=== PATIENT | female | born 1940 | race Caucasian/White ===

== ENCOUNTER 2017-12-01 10:20 | Observation (INO) | payer MEDICARE, OTHER ==
[~2017-12-01] VITALS: Ht 162.6 cm; Wt 56.3 kg
[~2017-12-01 10:20] MED LIST changes: -DICY-42 PO; -ONDA4TAB PO
[2017-12-01] MEDS ORDERED: NS(*) 0.9% 1000 ML BAG 1,000 ML IV ONE (10:45)
[2017-12-01] MEDS ORDERED: ONDANSETRON 4 MG/2 ML VIAL IVP ONE (11:15)
[2017-12-01 11:18] LABS: PLATELET COUNT, AUTOMATED 337 K/uL (150-450)
[2017-12-01] MEDS ORDERED: fentaNYL CITR 100 MCG/2 ML AMP IVP ONE (12:20)
--- NOTE | 2017-12-01 13:36 | ER Report ---
History and Physical Time Seen By MD: 10:30 Hx. of Stated Complaint: Patient reporting diarrhea since this morning. HPI/ROS CHIEF COMPLAINT: Diarrhea HISTORY OF PRESENT ILLNESS: 2 episodes, onset this morning denies fevers chills denies abdominal cramps endorses weakness and malaise. Does not feel dehydrated. She arrived by EMS. Lives alone. Denies other medical problems REVIEW OF SYSTEMS: Constitutional: No fever, no chills. Eyes: No discharge. ENT: No sore throat. Cardiovascular: No chest pain, no palpitations. Respiratory: No cough, no shortness of breath. Gastrointestinal: No abdominal pain, no vomiting. Genitourinary: No hematuria. Musculoskeletal: No back pain. Skin: No rashes. Neurological: No headache. Allergies: Coded Allergies: No Known Drug Allergies (Verified , 10/16/17) Home Meds Reported Medications Lisinopril (LISINOPRIL) 40 Mg Tablet, 40 MG PO QDAY, TAB 10/16/17 Discontinued Reported Medications Temazepam (Temazepam) 15 Mg Capsule, 15 MG PO HS Y 01/17/13 Acetaminophen (TYLENOL 325 MG (OR EQUIV)) 325 Mg Tab, 650 MG PO Q4H Y 01/17/13 Warfarin Sod (Coumadin (Or Equiv)) 7.5 Mg Tab, 5 MG PO QDAY It is very important that you take your coumadin exactly as prescribed, have blood work to monitor your PT/INR values, and follow up with your health care provider as prescribed. Diet and medication can affect the PT/INR level. Keep your diet pretty much the same day to day. Many foods contain Vitamin K which helps blood to clot and can affect the way your coumadin works. You don't need to avoid foods that have Vitamin K, but you do need to eat about the same amount of them every day. Be sure to tell your provider before changing your diet for any reason (weight loss, illness, etc.) Do not start or discontinue any medications, prescribed or over the counter, except on the advise of your provider or pharmacist. Coumadin (Warfarin) increases the risk of bleeding. 01/17/13 Pantoprazole Sod (PROTONIX (OR EQUIV)) 40 Mg Tabec, 40 MG PO BID 01/17/13 Mirtazapine (REMERON (OR EQUIV)) 15 Mg Tab, 7.5 MG PO HS 01/17/13 Gabapentin (NEURONTIN (OR EQUIV)) 100 Mg Cap, 100 MG PO TID For leg pain. Stop if too sedating. 01/17/13 Docusate Sod/Senna (Senokot S) 1 Ea Tab, 1 EA PO BID 01/17/13 Hx Smoking: No Hx Substance Use Disorder: No Hx Alcohol Use: No Constitutional Vital Sign - Last 24 Hours 12/01/17 12/01/17 12/01/17 12/01/17 10:25 10:27 10:30 10:35 Temp 97.8 Pulse 77 75 77 Resp 18 B/P (MAP) 127/73 127/73 (91) 117/76 (90) Pulse Ox 94 94 94 O2 Delivery Room Air 12/01/17 12/01/17 12/01/17 12/01/17 10:40 10:45 10:55 11:00 Pulse 76 81 76 84 B/P (MAP) 76/51 (59) Pulse Ox 95 93 93 95 12/01/17 12/01/17 12/01/17 12/01/17 11:05 11:10 11:15 11:20 Pulse 74 94 76 Pulse Ox 95 90 89 90 Intake and Output 12/01/17 12/01/17 12/02/17 15:00 23:00 07:00 Output Total 50 ml Balance -50 ml Physical Exam General Appearance: The patient is alert, has no immediate need for airway protection and no signs of toxicity. Nontoxic appearance Eyes: Pupils equal and round no pallor or injection. ENT, Mouth: Mucous membranes are moist. Respiratory: There are no retractions, lungs are clear to auscultation. Cardiovascular: Regular rate and rhythm. No murmurs gallops or rubs Gastrointestinal: Abdomen is soft and non tender, no masses, bowel sounds normal. Neurological: Normal Skin: Warm and dry, no rashes. Musculoskeletal: Neck is supple non tender. Extremities are nontender, nonswollen and have full range of motion. [ ] DIFFERENTIAL DIAGNOSIS: After history and physical exam differential diagnosis was considered for gastritis, enteritis, gastroenteritis, colitis, pancreatitis , less likely AAA, aortic dissection, mesenteric ischemia this is an incomplete list of diagnoses considered Medical Decision Making Data Points Result Diagram: 12/01/17 1104 12/01/17 1104 Laboratory Hematology Test 12/01/17 11:04 12/01/17 11:49 12/01/17 12:42 Red Blood Count 5.36 M/uL (4.17-5.56) Mean Corpuscular Volume 89.9 fL (80.0-96.0) Mean Corpuscular Hemoglobin 30.2 pg (26.0-33.0) Mean Corpuscular Hemoglobin Concent 33.6 g/dL (32.0-36.0) Red Cell Distribution Width 13.5 % (11.5-14.5) Mean Platelet Volume 8.3 fL (7.2-11.1) Neutrophils (%) (Auto) 93.1 % (39.4-72.5) Lymphocytes (%) (Auto) 2.6 % (17.6-49.6) Monocytes (%) (Auto) 3.4 % (4.1-12.4) Eosinophils (%) (Auto) 0.5 % (0.4-6.7) Basophils (%) (Auto) 0.4 % (0.3-1.4) Nucleated RBC Relative Count (auto) 0.0 /100WBC Neutrophils # (Auto) 14.7 K/uL (2.0-7.4) Lymphocytes # (Auto) 0.4 K/uL (1.3-3.6) Monocytes # (Auto) 0.5 K/uL (0.3-1.0) Eosinophils # (Auto) 0.1 K/uL (0.0-0.5) Basophils # (Auto) 0.1 K/uL (0.0-0.1) Nucleated RBC Absolute Count (auto) 0.00 K/uL Sodium Level 138 mmol/L (137-145) Potassium Level 4.3 mmol/L (3.5-5.0) Chloride Level 104 mmol/L (98-107) Carbon Dioxide Level 24 mmol/L (22-31) Blood Urea Nitrogen 13 mg/dl (7-18) Creatinine 0.80 mg/dl (0.52-1.04) Glomerular Filtration Rate Calc > 60.0 Random Glucose 103 mg/dl (75-110) Calcium Level 9.4 mg/dl (8.4-10.2) Stool Occult Blood (IFOB) Negative (NEGATIVE) Stool Leukocytes, Qualitative Positive Clostridium Difficile Toxin A & B Negative Clostridium difficile Antigen Negative Urine Color Yellow Urine Clarity Clear Urine pH 5.0 pH (4.8-9.5) Urine Specific [place] 1.019 Urine Protein Negative mg/dL (NEGATIVE) Urine Glucose (UA) Negative mg/dL (NEGATIVE) Urine Ketones Trace mg/dL (NEGATIVE) Urine Blood Negative (NEGATIVE) Urine Nitrite Negative (NEGATIVE) Urine Bilirubin Negative (NEGATIVE) Urine Urobilinogen 2.0 mg/dL (0.2-1.9) Urine Leukocyte Esterase Negative (NEGATIVE) Urine RBC None /HPF (0-2/HPF) Urine WBC <1 /HPF (0-5/HPF) Urine Squamous Epithelial Cells None /LPF (NONE-FEW) Urine Bacteria Negative /HPF (NONE-FEW) Urine Mucus None /HPF (NONE-FEW) Chemistry Test 12/01/17 11:04 12/01/17 11:49 12/01/17 12:42 White Blood Count 15.8 k/uL (4.5-11.0) Red Blood Count 5.36 M/uL (4.17-5.56) Hemoglobin 16.2 g/dL (12.0-16.0) Hematocrit 48.2 % (34.0-47.0) Mean Corpuscular Volume 89.9 fL (80.0-96.0) Mean Corpuscular Hemoglobin 30.2 pg (26.0-33.0) Mean Corpuscular Hemoglobin Concent 33.6 g/dL (32.0-36.0) Red Cell Distribution Width 13.5 % (11.5-14.5) Platelet Count 337 K/uL (150-450) Mean Platelet Volume 8.3 fL (7.2-11.1) Neutrophils (%) (Auto) 93.1 % (39.4-72.5) Lymphocytes (%) (Auto) 2.6 % (17.6-49.6) Monocytes (%) (Auto) 3.4 % (4.1-12.4) Eosinophils (%) (Auto) 0.5 % (0.4-6.7) Basophils (%) (Auto) 0.4 % (0.3-1.4) Nucleated RBC Relative Count (auto) 0.0 /100WBC Neutrophils # (Auto) 14.7 K/uL (2.0-7.4) Lymphocytes # (Auto) 0.4 K/uL (1.3-3.6) Monocytes # (Auto) 0.5 K/uL (0.3-1.0) Eosinophils # (Auto) 0.1 K/uL (0.0-0.5) Basophils # (Auto) 0.1 K/uL (0.0-0.1) Nucleated RBC Absolute Count (auto) 0.00 K/uL Glomerular Filtration Rate Calc > 60.0 Calcium Level 9.4 mg/dl (8.4-10.2) Stool Occult Blood (IFOB) Negative (NEGATIVE) Stool Leukocytes, Qualitative Positive Clostridium Difficile Toxin A & B Negative Clostridium difficile Antigen Negative Urine Color Yellow Urine Clarity Clear Urine pH 5.0 pH (4.8-9.5) Urine Specific [place] 1.019 Urine Protein Negative mg/dL (NEGATIVE) Urine Glucose (UA) Negative mg/dL (NEGATIVE) Urine Ketones Trace mg/dL (NEGATIVE) Urine Blood Negative (NEGATIVE) Urine Nitrite Negative (NEGATIVE) Urine Bilirubin Negative (NEGATIVE) Urine Urobilinogen 2.0 mg/dL (0.2-1.9) Urine Leukocyte Esterase Negative (NEGATIVE) Urine RBC None /HPF (0-2/HPF) Urine WBC <1 /HPF (0-5/HPF) Urine Squamous Epithelial Cells None /LPF (NONE-FEW) Urine Bacteria Negative /HPF (NONE-FEW) Urine Mucus None /HPF (NONE-FEW) Urinalysis Test 12/01/17 12:42 Urine Color Yellow Urine Clarity Clear Urine pH 5.0 pH (4.8-9.5) Urine Specific [place] 1.019 Urine Protein Negative mg/dL (NEGATIVE) Urine Glucose (UA) Negative mg/dL (NEGATIVE) Urine Ketones Trace mg/dL (NEGATIVE) Urine Blood Negative (NEGATIVE) Urine Nitrite Negative (NEGATIVE) Urine Bilirubin Negative (NEGATIVE) Urine Urobilinogen 2.0 mg/dL (0.2-1.9) Urine Leukocyte Esterase Negative (NEGATIVE) Urine RBC None /HPF (0-2/HPF) Urine WBC <1 /HPF (0-5/HPF) Urine Squamous Epithelial Cells None /LPF (NONE-FEW) Urine Bacteria Negative /HPF (NONE-FEW) Urine Mucus None /HPF (NONE-FEW) Microbiology Microbiology Date/Time Source Procedure Growth Status 12/01/17 11:49 Stool Gram Stain - Final Resulted 12/01/17 11:49 Stool Stool Culture Pending Resulted ED Course/Re-evaluation ED Course 12/01/2017 1:45:02 pm the case was discussed with Dr. Ellis. Patient does not need to be amended this time. Recommends oral hydration given water use at home. No antibiotics at this time. This was discussed with the patient agrees to , no one I get help as needed. She has no pain. Vitals are stable at this time. Her daughter can be called to come and look after her. Decision to Disposition Date: Dec 01, 2017 Decision to Disposition Time: 13:46 Depart Departure Latest Vital Signs Vital Signs Date Time Temp Pulse Resp B/P (MAP) Pulse Ox O2 Delivery O2 Flow Rate FiO2 12/01/17 11:20 90 12/01/17 11:15 76 12/01/17 11:00 76/51 (59) 12/01/17 10:25 97.8 18 Room Air Impression: Primary Impression: Diarrhea Condition: Improved Disposition: HOME OR SELF-CARE Referrals: PADMINI BROWN PA-C (PCP) New Scripts Ondansetron (ZOFRAN ODT) 4 Mg Tab.rapdis 4 MG PO Q6H Y for NAUSEA/VOMITING, #20 TAB.FIGUEROA 0 Refills Prov: GARY MALHOTRA MD 12/01/17 Dicyclomine Hcl (BENTYL) 10 Mg Capsule 20 MG PO QID for Nausea for 10 Days, #20 CAPSULE Prov: GARY MALHOTRA MD 12/01/17 Patient Instructions: Acute Diarrhea (ED) GARY MALHOTRA MD Dec 01, 2017 13:36
[2017-12-01] MEDS ORDERED: ONDA4TAB PO (13:57)
[2017-12-01] MEDS ORDERED: DICY-42 PO (13:57)
--- NOTE | 2017-12-01 15:33 | RADIOLOGY IMAGING REPORT ---
FACILITY: [facility] PATIENT NAME: Tere Johnson : 1940 MR: [id number] V: [id number] EXAM DATE: ORDERING PHYSICIAN: GARY MALHOTRA TECHNOLOGIST: Location: [facility] Patient: Tere Johnson : 1940 Visit/Account:[id number] Date of Sevice: 12/01/2017 Exam type: CHEST SINGLE AP History: Hypoxia Comparison: January 10, 2013. Findings: Mild interstitial prominence of the lungs appear some are to the prior study and appears to be chroni c. No focal infiltrates are identified. There is mild blunting left costophrenic angle although joel ears less prominent when compared the prior examination. The cardiac silhouette is enlarged but unch anged. There is soft tissue fullness in the paratracheal region which appears slightly more prominen t when compared the prior study. The patient's chin however is positioned inferiorly over the upper thorax which may part account for this finding.. Also of note on a prior CT from January 11, 2013 a re ectatic vessels in the superior mediastinum. Incompletely imaged are postsurgical changes the lum bar spine IMPRESSION: 1. Interstitial prominence throughout the lungs appears similar to the prior study and appears to be chronic. No acute appearing infiltrates are seen. Cardiomegaly unchanged Soft tissue fullness in the paratracheal region appears subtly more prominent when compared the prior study however the patient's chin is positioned inferiorly over the upper thorax which may account fo r this finding. Ectatic vessels in the superior mediastinum are also noted on a prior CT Report Dictated By: Jessica Ribeiro MD at 12/01/2017 3:24 PM Report E-Signed By: Jessica Ribeiro MD at 12/01/2017 3:28 PM [id number]:[email or web address]
[2017-12-01 18:06] VITALS: BP 160/93
[2017-12-01] MEDS ORDERED: NS(*) 0.9% 1000 ML BAG 1,000 ML IV PRN (18:33)
[2017-12-01] MEDS: ACETAMINOPHEN 325 MG TAB PO PRN (19:10)
--- NOTE | 2017-12-01 19:12 | History & Physical ---
History of Present Illness Chief Complaint Diarrhea History of Present Illness 77yo female with PMHx significant for previous pulmonary embolism, HTN, previous lumbar spine surgery, pneumonia. She was evaluated in the ER for acute onset of nausea, vomiting, and diarrhea, which began early this AM. She denies any obvious fevers or chills. She denies any current abdominal pain. She was noted to be somewhat confused, but it is unclear as to her baseline. She currently lives alone and receives some help with Meals on Wheels. She does answer all questions, but is confused as to current day/date. She does know she is 77years old and was born on [birth year], but does not recall her year. Looking through previous evaluations in the ER, it appears she has had some chronic problems with cognitive abilities. During this evaluation she was found to have elevation of her WBC count. Remainder of her evaluation was rather unremarkable including CXR (chronic interstitial prominence), UA, chem panel. She was noted to be modestly hypoxic with RA saturations in the 80-85% range. She was recommended for admission. 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 Guadarrama's H&P in 2013. Home Meds Reported Medications Lisinopril (LISINOPRIL) 40 Mg Tablet, 40 MG PO QDAY, TAB 10/16/17 Discontinued Reported Medications Temazepam (Temazepam) 15 Mg Capsule, 15 MG PO HS Y 01/17/13 Acetaminophen (TYLENOL 325 MG (OR EQUIV)) 325 Mg Tab, 650 MG PO Q4H Y 01/17/13 Warfarin Sod (Coumadin (Or Equiv)) 7.5 Mg Tab, 5 MG PO QDAY It is very important that you take your coumadin exactly as prescribed, have blood work to monitor your PT/INR values, and follow up with your health care provider as prescribed. Diet and medication can affect the PT/INR level. Keep your diet pretty much the same day to day. Many foods contain Vitamin K which helps blood to clot and can affect the way your coumadin works. You don't need to avoid foods that have Vitamin K, but you do need to eat about the same amount of them every day. Be sure to tell your provider before changing your diet for any reason (weight loss, illness, etc.) Do not start or discontinue any medications, prescribed or over the counter, except on the advise of your provider or pharmacist. Coumadin (Warfarin) increases the risk of bleeding. 01/17/13 Pantoprazole Sod (PROTONIX (OR EQUIV)) 40 Mg Tabec, 40 MG PO BID 01/17/13 Mirtazapine (REMERON (OR EQUIV)) 15 Mg Tab, 7.5 MG PO HS 01/17/13 Gabapentin (NEURONTIN (OR EQUIV)) 100 Mg Cap, 100 MG PO TID For leg pain. Stop if too sedating. 01/17/13 Docusate Sod/Senna (Senokot S) 1 Ea Tab, 1 EA PO BID 01/17/13 Discontinued Scripts Ondansetron (ZOFRAN ODT) 4 Mg Tab.rapdis, 4 MG PO Q6H Y for NAUSEA/VOMITING, # 20 TAB.FIGUEROA 0 Refills Prov:GARY MALHOTRA MD 12/01/17 Dicyclomine Hcl (BENTYL) 10 Mg Capsule, 20 MG PO QID for Nausea for 10 Days, # 20 CAPSULE Prov:GARY MALHOTRA MD 12/01/17 Allergies: Coded Allergies: No Known Drug Allergies (Verified , 10/16/17) Other Social/Family Hx Unobtainable Hx Smoking: No Caffeine Intake: Coffee Caffeine/Cups Per Day: DECAF COFFEE MOSTLY Hx Alcohol Use: No Hx Substance Use Disorder: No Review of Systems Constitutional: No Fever, No Chills, No Night Sweats Cardiovascular: No Chest Pain Respiratory: No Shortness of Breath, No Cough Gastrointestinal: Nausea, Vomiting, Diarrhea Genitourinary: Dysuria Exam Vital Signs Vital Signs Date Time Temp Pulse Resp B/P (MAP) Pulse Ox O2 Delivery O2 Flow Rate FiO2 12/01/17 18:06 98.8 89 16 160/93 (115) 93 Nasal Cannula 0.5 General Appearance: Alert, Awake Neuro: No Gross deficits (motor exam is grossly normal) Eyes: PERRLA ENT: Oropharynx Clear Neck: No Masses Cardiovascular: Regular Rate and Rhythm, No JVD Respiratory: Other (few fine rales at bases) Chest: No Tenderness GI: Abd Soft and Non-Tender (BS present) : No CVA Tenderness Lymph: No Adenopathy Extremities: Warm, Perfused Integumentary: Skin Intact without Lesion / Mass (no rashes noted), Other ( healed scars over knee/lumbar spine) Psych: Other (she is oriented to person and partially to place and time) Medical Decision Making Data Points Result Diagram: 12/01/17 1104 12/01/17 1104 Item Value Date Time Urine Mucus None /HPF 12/01/17 1242 Urine Bacteria Negative /HPF 12/01/17 1242 Urine Squamous Epithelial Cells None /LPF 12/01/17 1242 Urine WBC <1 /HPF 12/01/17 1242 Urine RBC None /HPF 12/01/17 1242 Urine Leukocyte Esterase Negative 12/01/17 1242 Urine Urobilinogen 2.0 mg/dL 12/01/17 1242 Urine Bilirubin Negative 12/01/17 1242 Urine Nitrite Negative 12/01/17 1242 Urine Blood Negative 12/01/17 1242 Urine Ketones Trace mg/dL 12/01/17 1242 Urine Glucose (UA) Negative mg/dL 12/01/17 1242 Urine Protein Negative mg/dL 12/01/17 1242 Urine Specific [place] 1.019 12/01/17 1242 Urine pH 5.0 pH 12/01/17 1242 Urine Clarity Clear 12/01/17 1242 Urine Color Yellow 12/01/17 1242 Lactate 1.1 mmol/L 12/01/17 1607 Stool Leukocytes, Qualitative Positive 12/01/17 1149 Stool Occult Blood (IFOB) Negative 12/01/17 1149 Clostridium difficile Antigen Negative 12/01/17 1149 Clostridium Difficile Toxin A & B Negative 12/01/17 1149 EKG / Imaging Imaging PATIENT NAME: Tere Johnson : 1940 MR: [id number] V: [id number] EXAM DATE: ORDERING PHYSICIAN: GARY MALHOTRA TECHNOLOGIST: Location: [facility] Patient: Tere Johnson : 1940 Visit/Account:[id number] Date of Sevice: 12/01/2017 Exam type: CHEST SINGLE AP History: Hypoxia Comparison: January 10, 2013. Findings: Mild interstitial prominence of the lungs appear some are to the prior study and appears to be chronic. No focal infiltrates are identified. There is mild blunting left costophrenic angle although appears less prominent when compared the prior examination. The cardiac silhouette is enlarged but unchanged. There is soft tissue fullness in the paratracheal region which appears slightly more prominent when compared the prior study. The patient's chin however is positioned inferiorly over the upper thorax which may part account for this finding.. Also of note on a prior CT from January 11, 2013 are ectatic vessels in the superior mediastinum. Incompletely imaged are postsurgical changes the lumbar spine IMPRESSION: 1. Interstitial prominence throughout the lungs appears similar to the prior study and appears to be chronic. No acute appearing infiltrates are seen. Cardiomegaly unchanged Soft tissue fullness in the paratracheal region appears subtly more prominent when compared the prior study however the patient's chin is positioned inferiorly over the upper thorax which may account for this finding. Ectatic vessels in the superior mediastinum are also noted on a prior CT Report Dictated By: Jessica Ribeiro MD at 12/01/2017 3:24 PM Report E-Signed By: Jessica Ribeiro MD at 12/01/2017 3:28 PM WSN:[email or web address] Assessment and Plan Problems: (1) Diarrhea Status: Acute Assessment & Plan: Associated with nausea and vomiting as well. It sounds as if she probably has an acute gastroenteritis. Will admit for IV fluids. Her symptoms have already improved. Will watch closely and use anti-emetics if needed, but would like to try to avoid as could contribute to confusion/ delirium. Re-check labs in AM. (2) Hypoxia Status: Acute Assessment & Plan: It may be this is not actually an acute problem. Her CXR does show interstitial prominence, which has been present for several years. This could be some chronic fibrotic change. As she has a history of previous PE , will check D-dimer and CT pulmonary angiogram if needed. (3) Chronic organic brain syndrome Status: Chronic Assessment & Plan: It does appear she most likely has fairly significant cognitive dysfunction/dementia. Will check some basic labs. She recently had CT scan of the brain (September 2017), which showed atrophy and extensive white matter changes consistent with small vessel ischemia and some apparent lacunar infarcts. Unfortunately, this may compromise her ability to live independently. (4) HTN (hypertension) Status: Chronic Assessment & Plan: Will monitor BPs and resume therapy if needed. Venous Thromboembolism Antithrombotics Is Pt On Any Antithrombotics?: Yes Exam Sepsis Risk: No Definite Risk BENTON OBRIEN MD Dec 01, 2017 19:12
[2017-12-01] MEDS ORDERED: IOPAMIDOL 76% 75 ML INFUS BTL 75 ML ONE (20:41)
[2017-12-01] MEDS ORDERED: NS 0.9% 50 ML VIAL 100 ML ONE (20:41)
--- NOTE | 2017-12-01 22:09 | RADIOLOGY IMAGING REPORT ---
[place] [facility] [place] Tere [place] : 1940 MR: [id number] V: [id number] EXAM DATE: ORDERING PHYSICIAN: BENTON OBRIEN TECHNOLOGIST: Location: [facility] [place] Patient: Tere Johnson : 1940 Visit/Account:[id number] Date of Sevice: 12/01/2017 EXAMINATION: CTA of the chest with IV contrast History: Hypoxia, elevated d-dimer TECHNIQUE: Pulmonary embolus protocol - Thin-slice axial imaging of the chest was performed during maximal pulmonary arterial opacification with intravenous nonionic iodinated contrast. 3D coronal sla b MIPs and 2D reconstructions in the coronal and sagittal planes were performed to aid in pulmonary e mbolus detection. Client Program Manager images have been stored on PACS. One of the following dose optimizat ion techniques was utilized in the performance of this exam: Automated exposure control; adjustment o f the mA and/or kV according to the patient's size; or use of an iterative reconstruction technique. Specific details can be referenced in the facility's radiology CT exam operational policy. Contrast: 35 mL of IV [id number] COMPARISON STUDIES: 01/11/2013. FINDINGS: Please note that this exam is optimized for assessment of the pulmonary arteries and is not intended as a diagnostic study of the thoracic aorta, coronary arteries or venous structures. Angiographic Findings: Pulmonary arteries: No evidence of pulmonary embolism. 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 Other vasculature: negative. Additional non-angiographic findings: Lungs / Pleura: Mild patchy atelectasis in the lower lobes.. Mediastinum / Sherry: negative. Heart / Pericardium: Enlarged. Musculoskeletal / Body wall: negative Lymph node assessment: negative Upper abdomen: Moderate to large hiatal hernia. Lower neck:Negative IMPRESSION: 1. No evidence of pulmonary embolism. 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 2. Mild atelectasis in the lower lobes. 3. Cardiomegaly. 4. Moderate to large hiatal hernia. Report Dictated By: Dillon Claudio MD at 12/01/2017 9:55 PM Report E-Signed By: Dillon Claudio MD at 12/01/2017 10:05 PM WSN:[id number]
[2017-12-01 22:39] VITALS: BP 137/99
[2017-12-01 22:55] VITALS: BP 122/95
[2017-12-02] MEDS: ACETAMINOPHEN 325 MG TAB PO PRN ×2 (01:03→08:23)
[2017-12-02 03:37] VITALS: BP 141/79
[2017-12-02 06:32] LABS: PLATELET COUNT, AUTOMATED 266 K/uL (150-450)
[2017-12-02 08:02] VITALS: BP 150/74
[2017-12-02 08:51] VITALS: Ht 162.6 cm; Wt 56.3 kg
[2017-12-02] MEDS: ENOXAPARIN 40 MG/0.4ML SYR SC SCH ×2 (09:00→09:55)
[2017-12-02 11:06] VITALS: BP 145/86
--- NOTE | 2017-12-02 14:15 | Hospitalist Depart ---
Discharge Summary Reason for Hosp/Final Diag: (1) Diarrhea Status: Resolved Hospital Course & Plan: Associated with nausea and vomiting as well. It sounds as if she probably has an acute gastroenteritis. She was hydrated. She is eating well and the diarrhea has resolved. (2) Hypoxia Status: Resolved Hospital Course & Plan: Since last night, she has been on room air and doing well. CTA of the chest didn't show any blood clots or evidence of infection. Etiology of the mild hypoxia is unclear. 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 She recently had CT scan of the brain (September 2017), which showed atrophy and extensive white matter changes consistent with small vessel ischemia and some apparent lacunar infarcts. She is at her baseline mental status today. She knows where she is and why she was admitted. She recognized me. Her son is comfortable with her going home and is going to increase the amount of visits from "[facility]". She will be getting meals from "[employer]". (4) HTN (hypertension) Status: Chronic Hospital Course & Plan: Will monitor BPs and resume therapy if needed. Departure Weight (Pounds): 124 Weight (Ounces): 1.0 Result Diagram: 12/02/1747 12/02/17 0547 Item Value Date Time Blood Urea Nitrogen 13 mg/dl 12/01/17 1104 Creatinine 0.80 mg/dl 12/01/17 1104 Sodium Level 138 mmol/L 12/01/17 1104 Potassium Level 4.3 mmol/L 12/01/17 1104 Chloride Level 104 mmol/L 12/01/17 1104 Carbon Dioxide Level 24 mmol/L 12/01/17 1104 Random Glucose 103 mg/dl 12/01/17 1104 Total Bilirubin 0.8 mg/dl 12/01/17 1104 Direct Bilirubin 0.4 mg/dl H 12/01/17 1104 Aspartate Amino Transf (AST/SGOT) 19 U/L 12/01/17 1104 Alkaline Phosphatase 81 U/L 12/01/17 1104 Alanine Aminotransferase (ALT/SGPT) 22 U/L 12/01/17 1104 Troponin I 0.015 ng/ml 12/01/17 1859 Troponin I 0.031 ng/ml 12/02/17 0547 Total Bilirubin 0.6 mg/dl 12/02/17 0547 Aspartate Amino Transf (AST/SGOT) 17 U/L 12/02/17 0547 Alanine Aminotransferase (ALT/SGPT) 23 U/L 12/02/17 0547 Alkaline Phosphatase 57 U/L 12/02/17 0547 Thyroid Stimulating Hormone (TSH) 0.46 uIU/ml 12/02/17 0547 Lactate 1.1 mmol/L 12/01/17 1607 White Blood Count 15.8 k/uL H 12/01/17 1104 White Blood Count 8.5 k/uL 12/02/17 0547 Hemoglobin 14.0 g/dL 12/02/17 0547 Hemoglobin 16.2 g/dL H 12/01/17 1104 Platelet Count 337 K/uL 12/01/17 1104 Platelet Count 266 K/uL 12/02/17 0547 Mean Platelet Volume 8.4 fL 12/02/17 0547 Neutrophils (%) (Auto) 89.5 % H 12/02/17 0547 Neutrophils (%) (Auto) 93.1 % H 12/01/17 1104 D-Dimer Quantitative (PE/DVT) 0.75 ug/ml H 12/01/17 1859 Urine RBC None /HPF 12/01/17 1242 Urine WBC <1 /HPF 12/01/17 1242 Urine Squamous Epithelial Cells None /LPF 12/01/17 1242 Urine Bacteria Negative /HPF 12/01/17 1242 Stool Leukocytes, Qualitative Positive 12/01/17 1149 Stool Occult Blood (IFOB) Negative 12/01/17 1149 Clostridium Difficile Toxin A & B Negative 12/01/17 1149 Clostridium difficile Antigen Negative 12/01/17 1149 GRAM STAIN Final 12/01/17-1300 4+ MIXED GRAM POS AND NEG BACTERIA CONSISTENT WITH NORMAL ALDO 2+ WHITE BLOOD CELLS STOOL CULTURE Preliminary 12/02/17-1146 NORMAL ALDO SO FAR, CULTURE REINCUBATED Imaging 12/01/17 Chest CTA - 1. No evidence of pulmonary embolism. There is chronic occlusion of a segmental branch to the left lower lobe unchanged. 2. Mild atelectasis in the lower lobes. 3. Cardiomegaly. 4. Moderate to large hiatal hernia. 12/01/17 CXR - 1. Interstitial prominence throughout the lungs appears similar to the prior study and appears to be chronic. No acute appearing infiltrates are seen. Cardiomegaly unchanged Soft tissue fullness in the paratracheal region appears subtly more prominent when compared the prior study however the patient's chin is positioned inferiorly over the upper thorax which may account for this finding. Ectatic vessels in the superior mediastinum are also noted on a prior CT Condition: Improved Discharge: Home Discharge Instructions Home Meds Reported Medications Lisinopril (LISINOPRIL) 40 Mg Tablet, 40 MG PO QDAY, TAB 10/16/17 Discontinued Reported Medications Temazepam (Temazepam) 15 Mg Capsule, 15 MG PO HS Y 01/17/13 Acetaminophen (TYLENOL 325 MG (OR EQUIV)) 325 Mg Tab, 650 MG PO Q4H Y 01/17/13 Warfarin Sod (Coumadin (Or Equiv)) 7.5 Mg Tab, 5 MG PO QDAY It is very important that you take your coumadin exactly as prescribed, have blood work to monitor your PT/INR values, and follow up with your health care provider as prescribed. Diet and medication can affect the PT/INR level. Keep your diet pretty much the same day to day. Many foods contain Vitamin K which helps blood to clot and can affect the way your coumadin works. You don't need to avoid foods that have Vitamin K, but you do need to eat about the same amount of them every day. Be sure to tell your provider before changing your diet for any reason (weight loss, illness, etc.) Do not start or discontinue any medications, prescribed or over the counter, except on the advise of your provider or pharmacist. Coumadin (Warfarin) increases the risk of bleeding. 01/17/13 Pantoprazole Sod (PROTONIX (OR EQUIV)) 40 Mg Tabec, 40 MG PO BID 01/17/13 Mirtazapine (REMERON (OR EQUIV)) 15 Mg Tab, 7.5 MG PO HS 01/17/13 Gabapentin (NEURONTIN (OR EQUIV)) 100 Mg Cap, 100 MG PO TID For leg pain. Stop if too sedating. 01/17/13 Docusate Sod/Senna (Senokot S) 1 Ea Tab, 1 EA PO BID 01/17/13 Discontinued Scripts Ondansetron (ZOFRAN ODT) 4 Mg Tab.rapdis, 4 MG PO Q6H Y for NAUSEA/VOMITING, # 20 TAB.FIGUEROA 0 Refills Prov:GARY MALHOTRA MD 12/01/17 Dicyclomine Hcl (BENTYL) 10 Mg Capsule, 20 MG PO QID for Nausea for 10 Days, # 20 CAPSULE Prov:GARY MALHOTRA MD 12/01/17 Diet: Regular Activity: As Tolerated Copies to: PADMINI BROWN PA-C Venous Thromboembolism Antithrombotics Is Pt On Any Antithrombotics?: Yes BENJAMIN POLANCO MD Dec 02, 2017 14:15
[2017-12-02 15:15] VITALS: BP 142/80
[2017-12-03] MEDS ORDERED: INFLUENZA VIRUS VAC 0.5 ML SYR IM ONLY ONE (18:35)
== END 2017-12-02 14:06 | disposition home or self-care (01) ==
LOC: ER 10:38 → INTOOBSV 17:05 → MED 17:05
PROVIDERS: ADMIT Internal Medicine; ATTEND Internal Medicine
DX: F09 Unspecified mental disorder due to known physiological condition (principal); R19.7 Diarrhea, unspecified; R09.02 Hypoxemia; I10 Essential (primary) hypertension
CPT/HCPCS: 36415; 71045; 71275; 81001; 82248; 82274; 83605; 83630; 84443; 84484; 85025; 85379; 87045; 87205; 87324; 87449; 96361; 96374; 96375; 99285; A4353; A9270; G0378; J2405; J3010; J7030; J7050; Q9967; 82040; 82247; 82310; 82374; 82435; 82565; 82947; 84075; 84132; 84155; 84295; 84450; 84460; 84520; J1650

== ENCOUNTER → 2017-12-01 | Outpatient (CLI) | payer MEDICARE, OTHER ==
[~2017-12-01] MED LIST: ACET-2031 PO; CEP250 PO; DICY-42 PO; ENO40I SQ; GAB100 PO; HCTZ25 PO; KET10 PO; LISI-374 PO; LOR7.5/325 PO; MIR15 PO; OND4 PO; ONDA4TAB PO; PAN40 PO; PANT40TA13 PO; PER PO; PRO25 PO; SEN100 PO; TEMA-1 PO; WAR5 PO; WAR75 PO
[2017-12-02 08:51] VITALS: BMI 21.3
== END ==
LOC: AMB 10:10
PROVIDERS: ATTEND Nurse Practitioner
DX: R19.7 Diarrhea, unspecified (principal); R53.1 Weakness
CPT/HCPCS: A0425; A0427

== ENCOUNTER 2018-02-12 20:03 | Inpatient (IN) | payer MEDICARE, OTHER ==
[2017-12-02 08:51] VITALS: Wt 59.9 kg
[~2018-02-12 20:03] MED LIST changes: -AMLO2.5T74 PO; -ASPI-816 PO; -IBUP200C74 PO; -LISI-362 PO
--- NOTE | 2018-02-12 20:05 | ER Report ---
History and Physical Time Seen By MD: 20:03 HPI/ROS CHIEF COMPLAINT: Weakness, trouble with speech HISTORY OF PRESENT ILLNESS: 77-year-old female with a history of dementia. She was brought in by ambulance tonight after her caregiver noted. She was having trouble completing sentences. She was also very weak and unable to stand and walk for the caregiver. Chin on arrival voices no complaints. Her vital signs are stable. Stroke scale was unremarkable by EMS. REVIEW OF SYSTEMS: Respiratory: No cough, no dyspnea. Cardiovascular: No chest pain, no palpitations. Gastrointestinal: No vomiting, no abdominal pain. Musculoskeletal: No back pain. Allergies: Coded Allergies: No Known Drug Allergies (Verified , 02/12/18) Home Meds Reported Medications Ibuprofen (ADVIL) 200 Mg Capsule, 1-2 CAP PO Q6-8H, CAPSULE 02/13/18 Lisinopril (LISINOPRIL) 40 Mg Tablet, 40 MG PO QDAY, TAB 10/16/17 Reviewed Nurses Notes: Yes Old Medical Records Reviewed: Yes Hx Smoking: No Hx Substance Use Disorder: No Hx Alcohol Use: No Constitutional Vital Sign - Last 24 Hours 02/12/18 02/12/18 02/12/18 02/12/18 20:05 20:06 20:18 20:30 Temp 98.9 Pulse 96 97 Resp 18 B/P (MAP) 166/104 (124) 166/104 182/105 (130) Pulse Ox 91 90 O2 Delivery Room Air 02/12/18 02/12/18 02/12/18 02/12/18 20:33 21:00 21:03 21:15 Pulse 101 101 97 B/P (MAP) 172/100 (124) Pulse Ox 93 90 92 02/12/18 02/12/18 02/12/18 02/12/18 21:30 21:45 22:00 22:15 Pulse 96 88 100 103 B/P (MAP) 192/100 (130) 170/91 (117) Pulse Ox 89 90 90 91 02/12/18 02/12/18 02/12/18 02/12/18 22:30 22:45 23:00 23:15 Pulse 118 87 77 94 B/P (MAP) 168/89 (115) 165/97 (119) Pulse Ox 85 91 89 92 02/12/18 02/12/18 02/13/18 02/13/18 23:30 23:45 00:00 00:15 Pulse 85 91 89 90 B/P (MAP) 163/112 (129) 180/94 (122) 02/13/18 02/13/18 02/13/18 02/13/18 00:30 00:45 01:00 01:15 Pulse 90 82 93 87 B/P (MAP) 164/93 (116) 166/117 (133) 02/13/18 01:30 Pulse 83 B/P (MAP) 166/112 (130) Physical Exam Vital signs stable, pulse ox normal, afebrile General Appearance: The patient is alert, has no immediate need for airway protection and no signs of toxicity. Mild dementia, pleasant, cooperative, voices no complaints. She is alert and oriented 3 Eyes: Pupils equal and round no pallor or injection. ENT, Mouth: Mucous membranes are moist. Respiratory: There are no retractions, lungs are clear to auscultation. Cardiovascular: Regular rate and rhythm. Gastrointestinal: Abdomen is soft and non tender, no masses, bowel sounds normal. 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 Musculoskeletal: Neck is supple non tender. No JVD, no lymphadenopathy Extremities are nontender, nonswollen and have full range of motion. No edema, no calf tenderness DIFFERENTIAL DIAGNOSIS: After history and physical exam differential diagnosis was considered for weakness including but not limited to electrolyte abnormality , depression, anxiety, CVA, spinal cord abnormality, and infectious causes. Medical Decision Making Data Points Result Diagram: 02/14/18 0542 02/13/18 0550 Laboratory Hematology Test 02/12/18 19:50 02/12/18 21:25 02/12/18 22:38 Prothrombin Time 13.8 seconds (12.0-14.4) Prothromb Time International Ratio 1.06 Activated Partial Thromboplast Time 33 seconds (23-35) Lactate 1.0 mmol/L (0.7-2.1) Urine Color Yellow Urine Clarity Clear Urine pH 7.0 pH (4.8-9.5) Urine Specific [place] 1.017 Urine Protein Negative mg/dL (NEGATIVE) Urine Glucose (UA) Negative mg/dL (NEGATIVE) Urine Ketones Trace mg/dL (NEGATIVE) Urine Blood Negative (NEGATIVE) Urine Nitrite Negative (NEGATIVE) Urine Bilirubin Negative (NEGATIVE) Urine Urobilinogen Negative mg/dL (0.2-1.9) Urine Leukocyte Esterase Negative (NEGATIVE) Urine RBC 1 /HPF (0-2/HPF) Urine WBC <1 /HPF (0-5/HPF) Urine Squamous Epithelial Cells Many /LPF (NONE-FEW) Urine Bacteria Negative /HPF (NONE-FEW) Urine Mucus None /HPF (NONE-FEW) Chemistry Test 02/12/18 19:50 02/12/18 21:25 02/12/18 22:38 Prothrombin Time 13.8 seconds (12.0-14.4) Prothromb Time International Ratio 1.06 Activated Partial Thromboplast Time 33 seconds (23-35) Lactate 1.0 mmol/L (0.7-2.1) Urine Color Yellow Urine Clarity Clear Urine pH 7.0 pH (4.8-9.5) Urine Specific [place] 1.017 Urine Protein Negative mg/dL (NEGATIVE) Urine Glucose (UA) Negative mg/dL (NEGATIVE) Urine Ketones Trace mg/dL (NEGATIVE) Urine Blood Negative (NEGATIVE) Urine Nitrite Negative (NEGATIVE) Urine Bilirubin Negative (NEGATIVE) Urine Urobilinogen Negative mg/dL (0.2-1.9) Urine Leukocyte Esterase Negative (NEGATIVE) Urine RBC 1 /HPF (0-2/HPF) Urine WBC <1 /HPF (0-5/HPF) Urine Squamous Epithelial Cells Many /LPF (NONE-FEW) Urine Bacteria Negative /HPF (NONE-FEW) Urine Mucus None /HPF (NONE-FEW) Coagulation Test 02/12/18 19:50 Prothrombin Time 13.8 seconds Prothromb Time International Ratio 1.06 Activated Partial Thromboplast Time 33 seconds Urinalysis Test 02/12/18 22:38 Urine Color Yellow Urine Clarity Clear Urine pH 7.0 pH (4.8-9.5) Urine Specific [place] 1.017 Urine Protein Negative mg/dL (NEGATIVE) Urine Glucose (UA) Negative mg/dL (NEGATIVE) Urine Ketones Trace mg/dL (NEGATIVE) Urine Blood Negative (NEGATIVE) Urine Nitrite Negative (NEGATIVE) Urine Bilirubin Negative (NEGATIVE) Urine Urobilinogen Negative mg/dL (0.2-1.9) Urine Leukocyte Esterase Negative (NEGATIVE) Urine RBC 1 /HPF (0-2/HPF) Urine WBC <1 /HPF (0-5/HPF) Urine Squamous Epithelial Cells Many /LPF (NONE-FEW) Urine Bacteria Negative /HPF (NONE-FEW) Urine Mucus None /HPF (NONE-FEW) Microbiology Microbiology Date/Time Source Procedure Growth Status 02/12/18 21:30 Blood Peripheral Draw Blood Culture - Preliminary NO GROWTH AFTER 2 DAYS, REINCUBATED Resulted 02/12/18 21:25 Blood Peripheral Draw Blood Culture - Preliminary NO GROWTH AFTER 2 DAYS, REINCUBATED Resulted EKG/Imaging EKG Interpretation 12 lead EK Rhythm: normal sinus rhythm with short FL interval, PACs and PVCs noted [place]: normal QRS: normal ST segments: Diffuse nonspecific ST and T-wave changes, there appears to be a new inversion of the T-wave in V1 through V3 not present on old EKG dated 10/16/17 Imaging X-ray: Single view portable chest x-ray was obtained. I viewed the images myself on the PACS system. My interpretation of the images is: No infiltrate, no effusion, normal mediastinum. The radiologist interpretation had no clinically significant variation from this interpretation. Results: CT scan of the head without contrast was obtained. The results of the study are CT Head without contrast Indication: Dysphasia, confusion. Comparison: 10/16/2017. Technique: Axial CT images were obtained through the brain from the skull base to the vertex without administration of IV contrast. One of the following dose optimization techniques was utilized in the performance of this exam: Automated exposure control; adjustment of the mA and/or kV according to the patient's size ; or use of an iterative reconstruction technique. Specific details can be referenced in the facility's radiology CT exam operational policy. Findings: No evidence of mass, mass effect, or midline shift. No acute intracranial hemorrhage or acute territorial infarction. Moderate cerebral volume loss and large amount of white matter hypoattenuation likely related to chronic small vessel ischemic disease, similar to prior. Skull is nonacute. Bilateral lens surgeries. The visualized paranasal sinuses and mastoid air spaces are clear. IMPRESSION: 1. No acute intracranial abnormality. 2. Moderate volume loss and severe probable chronic white matter disease similar to prior. The study was read by the radiologist. I viewed the images myself on the PACS system. ED Course/Re-evaluation Clinical Indication for ER IV: Hydration, IV Access ED Course Patient was admitted to an examination room. H&P was done. The differential diagnoses was considered. Patient with altered mental status. She's having trouble completing her sentences. She is unable to ambulate with the assistance of her caregiver. Normally she is quite ambulatory. This afternoon at 2 PM she went to lunch at [employer] without any difficulty. Tonight she has a sudden onset of symptoms. She does have advanced dementia. Patient on arrival by EMS voices no complaints. Caregiver provide significant history. Diagnostic evaluation shows an elevated white blood cell count of 19,000 with a left shift. Patient is afebrile. A CT scan of the head is unremarkable. Her chest x-ray is unremarkable. A catheter urinalysis is unremarkable for signs of infection. Patient's troponin was mildly elevated 0.033, patient was monitored for 3 hours and a repeat troponin was noted to be 0.064 in the indeterminate range, but increasing. Her case was discussed with the hospitalist for admission. She is unable to ambulate and care for self at home. She has a 19,000 white count with a left shift with no obvious source of infection. She does not have a headache or stiff neck. I do not think an LP is indicated at this time. Cultures have been drawn. 02/13/2018 1:15:07 am case discussed with Dr Nate Springer hospitalist on-call , who will come evaluate the patient for consideration of admission Decision to Disposition Date: Feb 13, 2018 Decision to Disposition Time: 01:04 Depart Departure Latest Vital Signs Vital Signs Date Time Temp Pulse Resp B/P (MAP) Pulse Ox O2 Delivery O2 Flow Rate FiO2 02/13/18 01:30 83 166/112 (130) 02/12/18 23:15 92 02/12/18 20:06 98.9 18 Room Air Impression: Primary Impression: Weakness Additional Impressions: Leukocytosis History of dementia Elevated troponin Condition: Improved Disposition: Admitted from ER Referrals: PADMINI BROWN PA-C (PCP) Problem Qualifiers Additional Impressions: Leukocytosis Leukocytosis type: unspecified Qualified Codes: D72.829 - Elevated white blood cell count, unspecified RANDIMATEUS Hassan DO Feb 12, 2018 20:05
[2018-02-12] MEDS ORDERED: NS(*) 0.9% 500 ML BAG 500 ML IV ONE (20:11)
--- NOTE | 2018-02-12 20:25 | EKG ---
[place] [facility] [place] MARYANA BRIG[place] : [id number] MR: [id number] V: [id number] EXAM DATE: ORDERING PHYSICIAN: MATEUS BRYAN TECHNOLOGIST: Merrill Tarqi Reason : Blood Pressure : / mmHG Vent. Rate : 097 BPM Atrial Rate : 097 BPM P-R Int : 130 ms QRS Dur : 082 ms QT Int : 352 ms P-R-T Axes : 010 074 056 degrees QTc Int : 447 ms Sinus rhythm with premature supraventricular complexes with occasional premature ventricular complexe s ST and T wave abnormality, consider anterior ischemia Abnormal ECG When compared with ECG of 16-OCT-2017 21:02, premature ventricular complexes are now present QRS duration has decreased T wave inversion now evident in Anterior leads Confirmed by BENJAMIN POLANCO ([id number]) on 02/12/2018 10:19:45 PM Referred By: Confirmed By:BENJAMIN POLANCO
[2018-02-12 20:27] LABS: PLATELET COUNT, AUTOMATED 323 K/uL (150-450)
[2018-02-12 20:34] LABS: INR 1.06
--- NOTE | 2018-02-12 21:27 | RADIOLOGY IMAGING REPORT ---
FACILITY: [facility] - [place], [place] PATIENT NAME: Tere Johnson : 1940 MR: [id number] V: [id number] EXAM DATE: ORDERING PHYSICIAN: MATEUS BRYAN TECHNOLOGIST: Location: [facility] [place] Patient: Tere Johnson : 1940 Visit/Account:[id number] Date of Sevice: 02/12/2018 CT Head without contrast Indication: Dysphasia, confusion. Comparison: 10/16/2017. Technique: Axial CT images were obtained through the brain from the skull base to the vertex without administration of IV contrast. One of the following dose optimization techniques was utilized in th e performance of this exam: Automated exposure control; adjustment of the mA and/or kV according to t he patient's size; or use of an iterative reconstruction technique. Specific details can be referen jazmine in the facility's radiology CT exam operational policy. Findings: No evidence of mass, mass effect, or midline shift. No acute intracranial hemorrhage or acute territorial infarction. 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 Skull is nonacute. Bilateral lens surgeries. The visualized paranasal sinuses and mastoid air spaces are clear. IMPRESSION: 1. No acute intracranial abnormality. 2. Moderate volume loss and severe probable chronic white matter disease similar to prior. Report Dictated By: Yandel Casillas MD at 02/12/2018 9:20 PM Report E-Signed By: Yandel Casillas MD at 02/12/2018 9:23 PM WSN:[id number]
--- NOTE | 2018-02-12 21:31 | RADIOLOGY IMAGING REPORT ---
FACILITY: PATIENT NAME: Tere Johnson : 1940 MR: [id number] V: [id number] EXAM DATE: ORDERING PHYSICIAN: MATEUS BRYAN TECHNOLOGIST: Location: [facility] Patient: Tere Johnson : 1940 Visit/Account:[id number] Date of Sevice: 02/12/2018 SINGLE AP RADIOGRAPH OF THE CHEST 02/12/2018 8:11 PM. INDICATION: Confusion, dysphasia. COMPARISON: 12/01/[address] FINDINGS: Patient is rotated to the right. Lungs are well-expanded. There is no consolidation. Probable chron ic bronchitic changes. No pleural effusion or pneumothorax. Heart is mildly enlarged. Double densit y over the lower mediastinum consistent with moderate size hiatal hernia as previously seen. IMPRESSION: 1. Unchanged mild cardiomegaly and probable chronic findings discussed with an acute cardiopulmonary abnormality. 2. Moderate size hiatal hernia. Report Dictated By: Yandel Casillas MD at 02/12/2018 9:23 PM Report E-Signed By: Yandel Casillas MD at 02/12/2018 9:26 PM WSN:[id number]
[2018-02-13] MEDS ORDERED: NS(*) 0.9% 1000 ML BAG 1,000 ML IV PRN (01:31)
[2018-02-13] MEDS ORDERED: ACETAMINOPHEN 500 MG TAB PO PRN (01:35)
[2018-02-13] MEDS ORDERED: LABETALOL HCL 20 MG/4 ML SYR IVP PRN (01:35)
--- NOTE | 2018-02-13 02:01 | History & Physical ---
History of Present Illness History of Present Illness 77yo female with dementia and HTN who was brought to the ER for difficulty speaking. She was in her normal state of health until the afternoon when her caregiver noted that the patient was not finishing her sentences. There were no reported other deficits. The patient remembers the event and is not clear how long it lasted. She denies focal weakness, cp, sob, fevers, chills, nausea , diarrhea, dysuria, or cough. She denies any new medications. In the ER, she was given a liter of fluid. The patient was diffusely weak and wasn't able to safely ambulate. 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 Home Meds Reported Medications Lisinopril (LISINOPRIL) 40 Mg Tablet, 40 MG PO QDAY, TAB 10/16/17 Allergies: Coded Allergies: No Known Drug Allergies (Verified , 02/12/18) Hx Smoking: No Caffeine Intake: Coffee Caffeine/Cups Per Day: DECAF COFFEE MOSTLY Hx Alcohol Use: No Hx Substance Use Disorder: No Review of Systems All Systems Reviewed/Normal: Yes, Except as Noted Exam Vital Signs Vital Signs Date Time Temp Pulse Resp B/P (MAP) Pulse Ox O2 Delivery O2 Flow Rate FiO2 02/12/18 21:03 101 90 02/12/18 21:00 172/100 (124) 02/12/18 20:06 98.9 18 Room Air General Appearance: Alert, Awake, Other (Appears to be shivering, normal work of breathing.) Neuro: No Gross deficits (She knows where she is and why she is here. ) ENT: Moist Mucous Membranes Cardiovascular: Regular Rate and Rhythm, No JVD Respiratory: Clear to Auscultation GI: Abd Soft and Non-Tender Extremities: No Edema Integumentary: No Jaundice, No Cyanosis Medical Decision Making Data Points Result Diagram: 02/12/18194902/12/181949 Item Value Date Time Neutrophils (%) (Auto) 88.7 % H 02/12/181949 Lymphocytes (%) (Auto) 5.3 % L 02/12/181949 Monocytes (%) (Auto) 5.6 % 02/12/181949 Eosinophils (%) (Auto) 0.0 % L 02/12/181949 Total Bilirubin 0.7 mg/dl 02/12/181949 Aspartate Amino Transf (AST/SGOT) 22 U/L 02/12/181949 Alanine Aminotransferase (ALT/SGPT) 23 U/L 02/12/181949 Alkaline Phosphatase 86 U/L 02/12/181949 Troponin I 0.033 ng/ml 02/12/181949 Troponin I 0.064 ng/ml 02/13/18 0015 Lactate 1.0 mmol/L 02/12/182124 Thyroid Stimulating Hormone (TSH) 0.46 uIU/ml 12/02/17 0547 Urine RBC 1 /HPF 02/12/182237 Urine WBC <1 /HPF 02/12/182237 Urine Squamous Epithelial Cells Many /LPF H 02/12/182237 Urine Bacteria Negative /HPF 02/12/182237 Urine Mucus None /HPF 02/12/182237 EKG / Imaging Imaging CXR - 1. Unchanged mild cardiomegaly and probable chronic findings discussed with an acute cardiopulmonary abnormality. 2. Moderate size hiatal hernia. Head CT - 1. No acute intracranial abnormality. 2. Moderate volume loss and severe probable chronic white matter disease similar to prior. Assessment and Plan Problems: (1) Difficulty with speech Status: Acute Assessment & Plan: The patient presented with difficulty with finishing sentences. It started in the afternoon of 02/12 and had resolved by the time I had evaluated her. She is aware of the event and is unsure when it resolved. She had no focal weakness, and has a non-focal exam. Will give her ASA and get an MRI of the brain. (2) Weakness Status: Acute Assessment & Plan: This occurred with the difficulty with speech, but has persisted. It is diffuse and limits her ability to ambulate. Concerned about an infection, but there is no obvious source. Will check CPK, ESR, and CRP. She has a borderline elevated troponin and an ECG with new T inversion. Will recheck Troponin in the morning. She denies any chest pain. (3) Leukocytosis Status: Acute Assessment & Plan: Etiology unclear. She appears to have some shivers and her skin is warm. Blood cultures were drawn. CXR and UA are wnl. Will check for influenza. Will follow closely. (4) HTN (hypertension) Status: Chronic Assessment & Plan: I don't believe she is on any medication for this. Will give Labetalol IV prn. (5) Chronic organic brain syndrome Status: Chronic Copies to: PADMINI BROWN PA-C Venous Thromboembolism Antithrombotics Is Pt On Any Antithrombotics?: No Exam Sepsis Risk: No Definite Risk Problem Qualifiers (1) Leukocytosis: Leukocytosis type: unspecified Qualified Codes: D72.829 - Elevated white blood cell count, unspecified BENJAMIN POLANCO MD Feb 13, 2018 02:01
[2018-02-13 02:59] VITALS: BP 153/77
[2018-02-13] MEDS: ASPIRIN 81 MG CHEW PO SCH ×2 (03:10→09:30)
[2018-02-13 06:17] LABS: PLATELET COUNT, AUTOMATED 260 K/uL (150-450)
[2018-02-13 07:40] VITALS: BP 153/76
[2018-02-13] MEDS ORDERED: INFLUENZA VIRUS VAC 0.5 ML SYR IM ONLY ONE (09:00)
[2018-02-13] MEDS: ENOXAPARIN 40 MG/0.4ML SYR SC SCH (09:31)
[2018-02-13] MEDS ORDERED: LABETALOL HCL 100 MG/20ML VIAL IVP PRN (10:05)
--- NOTE | 2018-02-13 11:37 | Hospitalist Progress Note ---
Subjective Progress Notes Subjective This patient was admitted for weakness and slurred speech. She had no acute events overnight. Patient Complains of: Cardiovascular: No: Chest Pain Respiratory: No: Shortness of Breath Physical Exam Vital Signs Date Time Temp Pulse Resp B/P (MAP) Pulse Ox O2 Delivery O2 Flow Rate FiO2 02/13/18 07:40 99.6 76 20 153/76 (101) 91 Room Air 74 Intake and Output 02/14/18 07:00 # Voids 1 # Bowel Movements 2 Neuro: No Gross deficits Cardiovascular: Regular Rate and Rhythm Respiratory: Clear to Auscultation Result Diagram: 02/13/18 0550 02/13/18 0550 Assessment and Plan Problems: (1) Difficulty with speech Status: Acute Assessment & Plan: The patient presented with difficulty with finishing sentences. Her CT scan showed chronic white matter changes, but no acute stroke. She has been started on aspirin. An MRI is pending. (2) Weakness Status: Acute Assessment & Plan: She is pending an MRI as above. Her ESR was normal, but the CRP was slightly elevated. Physical and occupational therapy consults have been ordered. (3) Leukocytosis Status: Acute Assessment & Plan: She does have an elevated WBC, but no other signs of infection. Her urine is clear and influenza testing was negative. Blood cultures are pending. (4) HTN (hypertension) Status: Chronic Assessment & Plan: She is on chronic treatment with lisinopril, which is currently on hold. 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
--- NOTE | 2018-02-13 11:51 | RADIOLOGY IMAGING REPORT ---
[place] [facility] [place] Tere [place] : 1940 MR: [id number] V: [id number] EXAM DATE: ORDERING PHYSICIAN: BENJAMIN POLANCO TECHNOLOGIST: Location: [facility] [place] Patient: Tere Johnson : 1940 Visit/Account:[id number] Date of Sevice: 02/13/2018 BRAIN W/O CONTRAST HISTORY: difficulty with speech ADDITIONAL HISTORY: None. TECHNIQUE: Multi-planar multi-sequence MRI brain without intravenous contrast. CONTRAST: None. COMPARISON: Head CT 02/12/2018. FINDINGS: Evidence of infarct: There is a punctate focal area of abnormal restricted diffusion in the right co yovany radiata, adjacent to the posterior aspect of the right lateral ventricle (image 15 on diffusion- weighted imaging). There is a second focal area of abnormal restricted diffusion in the left merida radiata, adjacent to the posterior horn of the left lateral ventricle (image 13). No other abnormal restricted diffusion is seen. Parenchyma: Lance-white matter differentiation and cortex are maintained. White matter: Diffuse increased T2 signal is seen throughout the white matter of both right and left cerebral hemispheres. There are several foci of encephalomalacia in the right and left merida radiata . Ventricles: Ventricles and sulci are symmetrically prominent. Vascular structures: Normal T2-weighted flow voids are seen in the vessels at the skull base. Hemorrhage: None. Masses/mass effect: None. Orbits: Unremarkable. Paranasal sinuses/mastoid air cells: Grossly clear. Bones and soft tissues: Unremarkable. IMPRESSION: 1. There are 2 small foci of abnormal restricted diffusion in the posterior white matter of the coron a radiata bilaterally, consistent with small focal infarcts. There is no evidence of edema or mass ef fect. 2. Diffuse widespread abnormal increased T2 signal throughout the white matter both right and left ce rebral hemispheres, consistent with small vessel ischemic change. 3. Generalized cerebral volume loss and atrophy. 4. No evidence of acute hemorrhage. Report Dictated By: Mike Brown at 02/13/2018 11:43 AM Report E-Signed By: Mike Brown at 02/13/2018 11:48 AM WSN:[id number]
[2018-02-13 12:47] VITALS: BP 149/80
[2018-02-13] MEDS ORDERED: IBUP200C74 PO (14:03)
[2018-02-13 16:10] VITALS: BP 152/70
[2018-02-13 19:42] VITALS: BP 153/78
[2018-02-14 01:50] VITALS: BP 161/77
[2018-02-14 06:13] LABS: PLATELET COUNT, AUTOMATED 265 K/uL (150-450)
[2018-02-14 06:52] VITALS: BP 167/83
[2018-02-14] MEDS: ASPIRIN 81 MG CHEW PO SCH (08:19)
[2018-02-14] MEDS: ENOXAPARIN 40 MG/0.4ML SYR SC SCH (08:20)
--- NOTE | 2018-02-14 09:18 | RADIOLOGY IMAGING REPORT ---
FACILITY: [facility] PATIENT NAME: Tere Johnson : 1940 MR: [id number] V: [id number] EXAM DATE: ORDERING PHYSICIAN: ALPESH MURILLO TECHNOLOGIST: Location: [facility] Patient: Tere Johnson : 1940 Visit/Account:[id number] Date of Sevice: 02/14/2018 Carotid ultrasound Indication: Stroke. Comparison:None available TECHNIQUE: Real-time grayscale, color flow and Doppler sonography of the cervical carotid and vertebr al arteries is performed. Stenosis % is determined from velocity criteria extrapolated from diameter data as defined by the Society of Radiologists in Ultrasound Consensus Conference Radiology 2003; 229 ;340-346. Findings: On the right : Peak systolic velocity of the right common carotid artery is 78 cm/s Peak systolic velocity of the right internal carotid artery is 84 cm/s There is normal antegrade flow of the right vertebral artery. The right ICA/CCA ratio is 1.08. No calcified atherosclerotic plaque is seen. On the left: Peak systolic velocity of the left common carotid artery is 84 cm/s Peak systolic velocity of the left internal carotid artery is 81 cm/s There is normal antegrade flow of the left vertebral artery. The left ICA/CCA ratio is 0.96. No calcified atherosclerotic plaque is seen. IMPRESSION: 1. Normal bilateral carotid duplex scan. Report Dictated By: Ricardo Purcell at 02/14/2018 9:08 AM Report E-Signed By: Ricardo Purcell at 02/14/2018 9:15 AM WSN:[email or web address]
[2018-02-14 12:27] VITALS: BP 162/68
--- NOTE | 2018-02-14 15:01 | Hospitalist Progress Note ---
Subjective Progress Notes Subjective No new complaints. The patient's daughter believes she is nearly back to her baseline. Physical Exam Vital Signs Date Time Temp Pulse Resp B/P (MAP) Pulse Ox O2 Delivery O2 Flow Rate FiO2 02/14/18 12:27 74 16 162/68 (99) 94 Room Air 02/14/18 06:52 98.0 Intake and Output 02/15/18 07:00 Intake Total 720 ml Balance 720 ml Intake Oral 720 ml # Voids 3 General Appearance: Alert, Awake, No Acute Distress Neuro: Other (Speech is normal. Strength is equal in upper and lower extremities.) Cardiovascular: Regular Rate and Rhythm Respiratory: Clear to Auscultation GI: Soft and Non-Tender Extremities: Warm, Perfused Psych: Appropriate Mood & Affect Result Diagram: 02/14/18 0542 02/13/18 0550 Assessment and Plan Problems: (1) Difficulty with speech Status: Acute Assessment & Plan: The patient presented with difficulty with finishing sentences. Her CT scan showed chronic white matter changes, but no acute stroke. She has been started on aspirin. An MRI did show 2 small foci of abnormal restricted diffusion in the posterior white matter of the merida radiata bilaterally, consistent with small focal infarcts. (2) Weakness Status: Acute Assessment & Plan: MRI with 2 small infarcts as above. Her ESR was normal, but the CRP was slightly elevated. Physical and occupational therapy consults have been ordered. (3) Leukocytosis Status: Acute Assessment & Plan: She does have an elevated WBC, but no other signs of infection. Her urine is clear and influenza testing was negative. CXR was negative. Blood cultures were negative as well. WBC is trending down. Will continue to follow. (4) HTN (hypertension) Status: Chronic Assessment & Plan: She is on chronic treatment with lisinopril, which is currently on hold to allow mild permissive hypertension in face of her CVA. 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
[2018-02-14 15:04] VITALS: BP 144/79
[2018-02-14 20:26] VITALS: BP 161/102
[2018-02-14 23:18] VITALS: BP 147/85
[2018-02-15 08:18] LABS: PLATELET COUNT, AUTOMATED 272 K/uL (150-450)
[2018-02-15 08:47] VITALS: BP 164/80
[2018-02-15] MEDS: ASPIRIN 81 MG CHEW PO SCH (09:03)
[2018-02-15] MEDS: ENOXAPARIN 40 MG/0.4ML SYR SC SCH (09:03)
[2018-02-15 12:34] VITALS: BP 146/118
[2018-02-15] MEDS: LISINOPRIL 10 MG TAB PO SCH (12:34)
[2018-02-15 14:39] VITALS: BP 137/78
--- NOTE | 2018-02-15 15:37 | Hospitalist Progress Note ---
Subjective Progress Notes Subjective The patient is without complaints. Therapy notes that she might be close to her baseline. Physical Exam Vital Signs Date Time Temp Pulse Resp B/P (MAP) Pulse Ox O2 Delivery O2 Flow Rate FiO2 02/15/18 14:39 80 16 137/78 (97) 91 Room Air 02/15/18 12:34 98.4 Intake and Output 02/16/18 07:00 # Voids 2 # Bowel Movements 1 General Appearance: Alert, Awake, No Acute Distress Neuro: Other (Decreased elbow extension strength and hip flexion strength on the left. ) Result Diagram: 02/15/18 0802/15/18 08 Assessment and Plan Problems: (1) Difficulty with speech Status: Acute Assessment & Plan: The patient presented with difficulty with finishing sentences. Her CT scan showed chronic white matter changes, but no acute stroke. She has been started on aspirin. An MRI did show 2 small foci of abnormal restricted diffusion in the posterior white matter of the merida radiata bilaterally, consistent with small focal infarcts. She has weakness noted on the left UE and LE and problems noted with motor planning. Her family thinks she is not quite to baseline mentally or physically and not swallowing all the food in her mouth. Will ask ST to evaluate for swallowing and cognitive concerns. Will get an ECF evaluation. (2) Weakness Status: Acute Assessment & Plan: MRI with 2 small infarcts as above. Her ESR was normal, but the CRP was slightly elevated. Physical and occupational therapy consults have been ordered. (3) Leukocytosis Status: Acute Assessment & Plan: She does have an elevated WBC, but no other signs of infection. CRP is a bit elevated. Her urine is clear and influenza testing was negative. CXR was negative. Blood cultures were negative as well. WBC is trending normal. Will continue to follow and recheck CRP. (4) HTN (hypertension) Status: Chronic Assessment & Plan: She previously was on chronic treatment with lisinopril, which is currently on hold to allow mild permissive hypertension in face of her CVA. Will start lisinopril at 10mg a day and follow. 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
--- NOTE | 2018-02-15 17:31 | RADIOLOGY IMAGING REPORT ---
[place] [facility] [place]IENT NAME: MARYANA BRIGGS : [id number] MR: [id number] V: [id number] EXAM DATE: ORDERING PHYSICIAN: MADI OBRIEN TECHNOLOGIST: Ольга Palm EXAMINATION:TWO-DIMENSIONAL ECHOCARDIOGRAPH REASON:HX OF STROKE 2D Measurements (normal values in centimeters) LV endLV endRV endVent.LV PostAorticLeftPercent DiastolicSystolicDiastolicSeptumWallRootAtriumShortening (3.5-5.7)(0.9-2.6)(0.6-1.1)(0.6-1.1)(2.0-3.7)(1.9-4.0)(25-35%) [id number] STROKE VOLUME: 41ml ESTIMATED EJECTION FRACTION: 57 % PARASTERNAL LONG AXIS: Overall left ventricular systolic function does appear to be normal. Patient has somewhat irregular rhythm. Borderline left ventricular thickening more along the interventricular septum but no evidence for any outflow tract obstruction. Right ventricle appears to be enlarged. Left atrium & left ventricle appear to be normal in size. Color examination of the valves reveals a trace of mitral insufficiency. Color examination of the aortic valve was unremarkable in this view. Some tricuspid insufficiency is also noted. PARASTERNAL SHORT AXIS: Aortic valve is trileaflet in configuration & appears to open normally. The pulmonic valve not well seen. There is a trace to mild amount of pulmonic insufficiency noted. Color examination of the tricuspid valve revealed some tricuspid insufficiency present. Color examination of the aortic valve was unremarkable. Normal left ventricular ejection fraction. No wall motion abnormalities were noted. APICAL FOUR AND TWO CHAMBER: Normal left ventricular ejection fraction. There is a moderate amount of tricuspid insufficiency noted. The tricuspid regurgitation Vmax measured at 3.81m/sec with an estimated right atrial pressure of 3mm Hg giving a total right ventricular pressure of approximately 61mm Hg. Left atrial volume is measured within normal ranges at 21.5ml/m2. Right atrial volume is moderately increased at 37ml/m2. The aortic valve area was measured within normal ranges at 2.4cm2. Mitral valve appears to open normally. Trace to mild amount of mitral insufficiency is noted. Moderate amount of tricuspid insufficiency is noted. SUBCOSTAL VIEW: No pericardial effusion was noted. No atrioseptal or ventriculoseptal defects were noted & an agitated saline bubble contrast study was done. No thrombi were noted in any of the chambers but the left atrial appendage was not seen. Doppler examination of the mitral valve in diastole does reveal the A wave > E wave. TAPSE was measured within normal ranges at 1.7. OVERALL IMPRESSION: 1. Normal left ventricular systolic function with a corrected estimated ejection fraction of 57%. There is a Grade 1/4 decrease in diastolic function. 2. Mild right ventricular enlargement with moderate right atrial enlargement. 3. Borderline left ventricular thickening more along the posterior wall but no evidence for any outflow tract obstruction. 4. A trileaflet aortic valve with no abnormalities. 5. A mild amount of pulmonic insufficiency & a mild amount of mitral insufficiency & a moderate amount of tricuspid insufficiency. The estimated right ventricular systolic pressure is estimated to be approximately 61mm Hg which does make this severely increased right systolic pressures and pul. Htn.. 6. No atrioseptal or ventriculoseptal defects were noted & an agitated saline bubble contrast study was done. 7. No thrombi were noted in any of the chambers but the left atrial appendage was not seen. Dictated by: Megan Weir M.D. on 02/14/2018 at 12:33 Transcribed by: MARY on 02/15/2018 at 11:06 Approved by: Megan Weir M.D. on 02/15/2018 at 17:29 [facility]
[2018-02-15 20:52] VITALS: BP 153/72
[2018-02-16 04:42] VITALS: BP 161/71
[2018-02-16 05:53] LABS: PLATELET COUNT, AUTOMATED 301 K/uL (150-450)
[2018-02-16 07:36] VITALS: BP 155/83
[2018-02-16] MEDS: ENOXAPARIN 40 MG/0.4ML SYR SC SCH ×2 (09:00→09:13)
[2018-02-16] MEDS: ASPIRIN 81 MG CHEW PO SCH (09:13)
[2018-02-16] MEDS: LISINOPRIL 10 MG TAB PO SCH (09:13)
[2018-02-16 11:02] VITALS: BP 137/93
--- NOTE | 2018-02-16 11:38 | Hospitalist Progress Note ---
Subjective Progress Notes Subjective She is awake and alert. She denies any complaints. Physical Exam Vital Signs Date Time Temp Pulse Resp B/P (MAP) Pulse Ox O2 Delivery O2 Flow Rate FiO2 02/16/18 11:02 99.9 68 16 137/93 (108) 92 Room Air Intake and Output 02/17/18 07:00 Intake Total 500 ml Balance 500 ml Intake Oral 500 ml # Voids 1 General Appearance: Alert, Awake Neuro: Other (she does move all four extremities/generalized weakness/slight drift on right as well) ENT: Other (face appears symmetric) Cardiovascular: Other (fairly regular with occasional ectopy) Respiratory: Clear to Auscultation GI: Soft and Non-Tender Extremities: Warm, Perfused Result Diagram: 02/16/1852202/16/18522 Assessment and Plan Problems: (1) Difficulty with speech Status: Acute Assessment & Plan: The patient presented with difficulty with finishing sentences. Her CT scan showed chronic white matter changes, but no acute stroke. She has been started on aspirin. An MRI did show 2 small foci of abnormal restricted diffusion in the posterior white matter of the merida radiata bilaterally, consistent with small focal infarcts. Her family thinks she is not quite to baseline mentally or physically and not swallowing all the food in her mouth. ST to evaluate for swallowing and cognitive concerns. PT/OT seeing as well. ECF to evaluate. (2) Weakness Status: Acute Assessment & Plan: MRI with 2 small infarcts as above. Her ESR was normal, but the CRP was slightly elevated. Physical and occupational therapy consults have been ordered. (3) Leukocytosis Status: Acute Assessment & Plan: She did have an elevated WBC, but no other signs of infection. CRP is a bit elevated. Her urine is clear and influenza testing was negative. CXR was negative. Blood cultures were negative as well. WBC is now normal. Will continue to follow. (4) HTN (hypertension) Status: Chronic Assessment & Plan: She previously was on chronic treatment with lisinopril. We have restarted lisinopril at 10mg a day. Follow closely. 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
[2018-02-16 16:10] VITALS: BP 149/85
[2018-02-16 19:45] VITALS: BP 150/78
[2018-02-17 03:10] VITALS: BP 165/72
[2018-02-17 08:12] VITALS: BP 176/96
[2018-02-17] MEDS ORDERED: amLODIPine BESYL(*) 2.5 MG TAB PO SCH (09:00)
[2018-02-17] MEDS: ASPIRIN 81 MG CHEW PO SCH (09:02)
[2018-02-17] MEDS: LISINOPRIL 10 MG TAB PO SCH (09:02)
[2018-02-17] MEDS: ENOXAPARIN 40 MG/0.4ML SYR SC SCH (09:02)
--- NOTE | 2018-02-17 09:48 | Hospitalist Depart ---
Discharge Summary Reason for Hosp/Final Diag: (1) Acute ischemic stroke Hospital Course & Plan: The patient presented with difficulty finishing sentences. Her CT scan showed chronic white matter changes, but no acute stroke. However, an MRI did show 2 small foci of abnormal restricted diffusion in the posterior white matter of the merida radiata bilaterally, consistent with small focal infarcts. She has been started on aspirin. She has also been evaluated by physical, occupational, and speech therapy. It has been recommended that she transfer to [facility] for [facility]. (2) Leukocytosis Status: Acute Hospital Course & Plan: She did have an elevated WBC, but no other signs of infection. Her blood cultures have also been negative. Her WBC improved without specific intervention. (3) HTN (hypertension) Status: Chronic Hospital Course & Plan: She has been chronic treatment with lisinopril. Amlodipine was added during this admission. (4) Chronic organic brain syndrome Status: Chronic Departure Latest Vital Signs Vital Signs 02/17/18 02/17/18 08:12 08:47 Temp 99.9 Pulse 88 Resp 16 B/P (MAP) 176/96 (122) Pulse Ox 91 O2 Delivery Room Air Weight (Pounds): 132 Weight (Ounces): 1.0 Result Diagram: 02/16/18 0523 02/17/18 0856 Condition: Improved Discharge: [facility] PT/OT Follow Up For: PT Evaluation and Treat, ST Evaluation and Treat, OT Evaluation and Treat Discharge Instructions Home Meds Reported Medications Ibuprofen (ADVIL) 200 Mg Capsule, 1-2 CAP PO Q6-8H, CAPSULE 02/13/18 Lisinopril (LISINOPRIL) 40 Mg Tablet, 40 MG PO QDAY, TAB 10/16/17 Diet: Regular Activity: As Tolerated Special Instructions: Copies to: PADMINI BROWN PA-C Venous Thromboembolism Antithrombotics Is Pt On Any Antithrombotics?: No Problem Qualifiers (1) Leukocytosis: Leukocytosis type: unspecified Qualified Codes: D72.829 - Elevated white blood cell count, unspecified (2) HTN (hypertension): Hypertension type: essential hypertension Qualified Codes: I10 - Essential ( primary) hypertension ALPESH MURILLO DO Feb 17, 2018 09:48
== END 2018-02-17 09:50 | DRG 66 ==
LOC: ER 20:19 → MED 02-13 01:40
PROVIDERS: ADMIT Internal Medicine; ATTEND Internal Medicine
DX: I63.8 Other cerebral infarction (principal); R47.9 Unspecified speech disturbances; D72.829 Elevated white blood cell count, unspecified; I10 Essential (primary) hypertension; F09 Unspecified mental disorder due to known physiological condition; F03.90 Unspecified dementia, unspecified severity, without behavioral disturbance, psychotic disturbance, mood disturbance, and anxiety; R79.89 Other specified abnormal findings of blood chemistry; M62.81 Muscle weakness (generalized); R41.82 Altered mental status, unspecified; R94.31 Abnormal electrocardiogram [ECG] [EKG]; M25.561 Pain in right knee; Z23 Encounter for immunization; Z86.711 Personal history of pulmonary embolism; Z98.1 Arthrodesis status; Z87.440 Personal history of urinary (tract) infections
CPT/HCPCS: 36415; 70450; 70551; 71045; 81001; 82040; 82247; 82310; 82374; 82435; 82550; 82565; 82947; 83605; 84075; 84132; 84155; 84295; 84450; 84460; 84484; 84520; 85025; 85610; 85651; 85730; 86140; 87040; 87088; 87502; 90471; 90674; 93005; 93306; 93880; 96360; 97161; 97165; 99285; A4338; A4353; J1650; J7030; J7040

== ENCOUNTER → 2018-02-12 | Outpatient (CLI) | payer MEDICARE, OTHER ==
[2017-12-02 08:51] VITALS: BMI 21.3
[~2018-02-12] MED LIST changes: +AMLO2.5T74 PO; +ASPI-816 PO; +DICY-42 PO; +IBUP200C74 PO; +LISI-362 PO; +ONDA4TAB PO
== END ==
LOC: AMB 19:42
PROVIDERS: ATTEND Nurse Practitioner
DX: R53.1 Weakness (principal); R47.01 Aphasia; R53.83 Other fatigue; I10 Essential (primary) hypertension; R41.0 Disorientation, unspecified
CPT/HCPCS: A0425; A0427

== ENCOUNTER 2018-02-17 09:51 | Inpatient (IN) | payer MEDICARE, OTHER ==
[2017-12-02 08:51] VITALS: Ht 165.1 cm; Wt 55.8 kg
[~2018-02-17] VITALS: Ht 165.1 cm; Wt 55.8 kg
[~2018-02-17 09:51] MED LIST changes: +IBUP200C74 PO
[2018-02-17 10:00] VITALS: BP 151/83
--- NOTE | 2018-02-17 14:45 | OT ECF NOTE ---
Type of Note: Initial Note Primary Medical Diagnosis: Generalized weakness Occupational Therapy Evaluation Date: 02/17/18 SUBJECTIVE: Prior Hospitalization: H 02/12/18 thru 02/17/18 Prior Level of Function: Prior to admission, pt reports (I) with ADLs and assist from [email or web address] for IADLs. She is oriented to self and place but not current situation or date. It is unclear how pt was managing at home and if she uses a RW. Her daughter lives in [place] and son lives out of state. Prior Living Status: Bi-level house, Alone Community Services: [employer] (possibly 3x/day), Meals on Wheels Home Accessibility: Stairs without rails, All needs on one level, Tub/shower combination Equipment Owned: Tub/shower chair Medical Complications/Past Medical History: Hx of dementia and HTN Psychosocial Support: Son provides 24/7 care every two weeks. He plans to be back in [place] around 03/02/18. Pain Scale (0-10): No pain reported at time of evaluation OBJECTIVE: Strength: MMT: Right Left Shoulder Flexion 4-/5 3+/5 Elbow Flexion 4-/5 3+/5 Wrist Extension 4-/5 3+/5 Shipmaster 3+/5 3+/5 (5= normal, 4= good, 3= fair, 2= poor, 1= trace) ROM: Both upper extremities, Minimally limited Functional Transfer: Assistive Device: Front wheeled walker, Gait belt Transfer Ability: Minimum assistance to negotiate RW. CGA ambulation. ADL: Upper body dressing: Assistive device: None Upper body dressing ability: Minimum assistance Lower body dressing: Assistive device: None Lower body dressing ability: Moderate assistance Toileting: Assistive device: Grab bars Toileting ability: Moderate assistance Grooming/hygiene: Assistive device: Grooming ability: CGA Bathing: Assistive device: Bathing ability: Poor seated balance seated EOB. Pt frequently leaning backwards. Able to self- correct with verbal cues. Standardized Assessment: Genet Index of Activities of Daily Livin/20 at initial evaluation (02/17). ASSESSMENT: Tere presents to [facility] with significant weakness and poor balance limiting safe engagement with ADLs. At [facility], she was living alone with [employer] caregivers possibly 3x/day. She currently requires Min-Mod A for all ADLs. She will benefit from skilled OT services to improve activity tolerance and optimize (I) with ADLs prior to discharge home with care from son. Problem List/Current Limitations: Decreased activity tolerance Decreased strength Decreased ROM Poor safety awareness Memory deficits Short Term Goals: 1) Pt will be CGA UB/LB dressing. 2) Pt will be CGA grooming/hygiene. 3) Pt will be CGA toileting. 4) Pt will be CGA shower task. 5) Pt Genet Index of ADLs score will increase by 2 points. Technical Illustrator Goals: Return home with 21/06 care Patient Goals: Return home Rehabilitation Prognosis: Good Barriers to Discharge: Cognition, discharge environment PLAN: The patient will benefit from skilled occupational therapy services 5 times per week for 2 weeks including: Ther ex ADL training Safety training Ther act IADL training Transfer training Adaptive equip training Bed mobility Energy conservation Thank you for this referral. If you have any questions, concerns, or comments about this report or plan, please contact me at . Victoria Pope MS, OTR/L Occupational Therapist [facility]
--- NOTE | 2018-02-17 14:49 | PT ECF NOTE ---
Type of Note: Initial Note Primary Medical Diagnosis: Acute Ischemic Stroke Physical Therapy Evaluation Date: 02/17/18 SUBJECTIVE: Prior Hospitalization: [facility] 02/13/18 - 02/17/18 Prior Level of Function: Unclear, pt was receiving services 3x/day via [facility]. Pt's son stays with the patient for 2 weeks at a time, every 2 weeks Prior Living Status: Bi-level house, Alone Community Services: Home health care, Meals on Wheels Home Accessibility: Unclear, there may be 2-3 stairs to enter the home Equipment Owned: Tub/shower chair Medical Complications/Past Medical History: See EMR Psychosocial Support: Son, lives in [place] Pain Scale (0-10): Pt reports that her R) foot is "always sore" OBJECTIVE: Strength: Pt with difficulty following cues for MMT while seated at EOB, results were therefore impacted Right Lower Extremity: Knee extension: >3/5 Hip flexion: >3/5 Left Lower Extremity: Knee extension:<3/5 Hip flexion: <3/5 ROM: R) foot and ankle externally rotate during gait Sensation:NT Other Neuro findings: None noted Bed Mobility: SBA with bed rail sit to supine, Diogenes supine to sit Transfers: Minimum assistance x 1 with RW from dining room chair Gait: CGA x 90' with RW Stairs: NT Gait Speed (0.6m/second cannot function independently): 0.125 m/sec ASSESSMENT: PT ECF eval complete. Pt requires increased assistance with functional mobility and demonstrates decreased functional activity tolerance. Pt ambulates with antalgic and step to gait pattern with significant ER of the R ) foot with ambulation. Gait speed measured at 0.125 m/sec indicating an increased risk of falls and increased need of assistance from others. Pt will benefit from skilled PT services in order to increase independence prior to d/c home. Problem List/Current Limitations: Pain Decreased activity gilbert Decreased strength Decreased balance Generalized weakness Memory deficits Decreased problem solving Short Term Goals: 1: Pt to complete bed mobility with Felipe and HOB flat 2: Pt to complete transfers with SBA and least restrictive AD 3: Pt to ambulate 200' with SBA and least restrictive AD 4: Pt to asc/desc 4 stairs with SBA Penitentiary Goals: Pt to d/c home with appropriate level of assistance Patient Goals: Non verbalized Rehabilitation Prognosis: Fair Barriers for Discharge: Cognitive deficit, high level of independence required to d/c home PLAN: The patient will benefit from skilled physical therapy services 5 times per week for 2 weeks including: Therapeutic Exercise Therapeutic Activities Transfer Training Gait Training Stair Training Manual Therapy ADL's Safety Training Neuromuscular Re-educ. Pt/Caregiver Training Bed Mobility Thank you for this referral. If you have any questions, concerns, or comments about this report or plan, please contact me at . Wilma Pappas, PT, DPT [facility]
[2018-02-17 16:30] VITALS: BP 117/67
[2018-02-18 08:10] VITALS: BP 194/86
[2018-02-18] MEDS: LISINOPRIL 10 MG TAB PO SCH (09:07)
[2018-02-18] MEDS: ASPIRIN 81 MG CHEW PO SCH (09:07)
[2018-02-18] MEDS: amLODIPine BESYL(*) 2.5 MG TAB PO SCH (09:07)
[2018-02-18] MEDS: ENOXAPARIN 40 MG/0.4ML SYR SC SCH (09:07)
--- NOTE | 2018-02-18 13:44 | Medical Nutrition Therapy ---
Nutrition Anthropometrics Height (Inches): 65.00 Height (Calculated Centimeters: 165.923392 Weight (Pounds): 123 Weight (Calculated Kilograms): 55.792 BMI Calculated: 21.28 Alden Nutrition Score: Adequate Alden Nutrition Risk Score: 17 Dietary Referral Nutrition Risk Factors: Nutrition Risk Comment: Physical Findings Physical Appearance: WNR Skin Appearance Skin Appearance: Edema Edema Location Modifier: Edema Location: Type of Edema: Degree of Edema: Gastrointestinal Symptoms GI Symtoms: Tube Present: Bowel Sounds: Recent Bowel Pattern: Stool Characteristics: Nutritional Diagnosis Nutritional Risk Acuity 3: Fair Appetite Past Medical History: PE, HTN, pneumonia, chronic organic brain syndrome, CVA Energy Requirement: 1350 (M- StJ) Protein Requirement: 55 (1gm/kg) Fluid Requirement: 1650 Diet Type: Diet as Tolerated MAGGY/REG Nutrition Intervention: Cont diet as ordered, Encourage intake, HS snack Nutrition Monitoring & Eval Nutrition Goals: Eat 75-100% Meal Nutrition Follow-Up: Fair Intake RD Patient Assessment Time: [address] Assessment Type: RD Assessment Patient Nutrition Acuity: 3-Mild Follow Up Date: Feb 22, 2018 Nutritional Comment: 02/18 Pt admitted post CVA. Pt on regular diet and eating 50- 100% of meals. alb 3.2 (02/13/18). Will cont to monitor and encourage intake. HAMZAH ALLEN Feb 18, 2018 13:44
[2018-02-18 15:52] VITALS: BP 130/75
--- NOTE | 2018-02-18 16:06 | Consultant Pharmacy Review ---
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 Medication Review Do All Mecications have a Diag: Yes Other General Cautions Lexicomp Interaction Analysis A = No known interaction C = Monitor therapy X = Avoid combination B = No action needed D = Consider therapy modification Drugs in this analysis: AmLODIPine; Aspirin; Lovenox; Prinivil * Drug-Drug Interactions C Aspirin (Agents with Antiplatelet Properties) Lovenox (Anticoagulants) Depends on International labeling C Aspirin (Salicylates) Lovenox (Anticoagulants) C Aspirin (Salicylates) Prinivil (Angiotensin-Converting Enzyme Inhibitors) C Lovenox (Heparins (Low Molecular Weight)) Prinivil (Angiotensin-Converting Enzyme Inhibitors) Pneumococcal Vaccine HX Pneumo Vac ([id number]): Yes (Age 63) HX Pneumo Vac (Pneumovax): No (Unsure ) Comments Regarding the Review Patient's pneumoccocal vaccination record is confusing as the Prevnar 13 was not available when patient was 63. Patient may be candidate if vaccination history can be verified. Notified? Notified?: No LINCOLN UMANZOR Feb 18, 2018 16:06
[2018-02-19 06:52] VITALS: BP 174/72
[2018-02-19 08:00] VITALS: BP 150/69
[2018-02-19] MEDS: ACETAMINOPHEN 325 MG TAB PO PRN ×2 (08:54→21:22)
[2018-02-19] MEDS: ENOXAPARIN 40 MG/0.4ML SYR SC SCH (08:54)
[2018-02-19] MEDS: amLODIPine BESYL(*) 2.5 MG TAB PO SCH (08:54)
[2018-02-19] MEDS: ASPIRIN 81 MG CHEW PO SCH (08:54)
[2018-02-19] MEDS: LISINOPRIL 10 MG TAB PO SCH (08:54)
[2018-02-19 17:10] VITALS: BP 120/70
[2018-02-20 08:30] VITALS: BP 165/82
[2018-02-20] MEDS: ASPIRIN 81 MG CHEW PO SCH (08:55)
[2018-02-20] MEDS: amLODIPine BESYL(*) 2.5 MG TAB PO SCH (08:55)
[2018-02-20] MEDS: LISINOPRIL 10 MG TAB PO SCH (08:55)
[2018-02-20] MEDS: ENOXAPARIN 40 MG/0.4ML SYR SC SCH (08:56)
[2018-02-20 15:10] VITALS: BP 144/81
[2018-02-20] MEDS: ACETAMINOPHEN 325 MG TAB PO PRN (20:41)
[2018-02-21 07:20] VITALS: BP 163/84
[2018-02-21] MEDS: LISINOPRIL 10 MG TAB PO SCH (08:49)
[2018-02-21] MEDS: ENOXAPARIN 40 MG/0.4ML SYR SC SCH (08:49)
[2018-02-21] MEDS: ASPIRIN 81 MG CHEW PO SCH (08:49)
[2018-02-21] MEDS: amLODIPine BESYL(*) 2.5 MG TAB PO SCH (08:49)
[2018-02-21 15:40] VITALS: BP 143/80
[2018-02-22 08:10] VITALS: BP 136/82
--- NOTE | 2018-02-22 08:59 | Medical Nutrition Therapy ---
Nutrition Anthropometrics Height (Inches): 65.00 Height (Calculated Centimeters: 165.394387 Weight (Pounds): 123 Weight (Calculated Kilograms): 55.792 BMI Calculated: 21.28 Alden Nutrition Score: Probably Inadequate Alden Nutrition Risk Score: 16 Dietary Referral Nutrition Risk Factors: Nutrition Risk Comment: Physical Findings Physical Appearance: WNR Skin Appearance Skin Appearance: Edema Edema Location Modifier: Edema Location: Type of Edema: Degree of Edema: Gastrointestinal Symptoms GI Symtoms: Tube Present: Bowel Sounds: Recent Bowel Pattern: Stool Characteristics: Nutritional Diagnosis Nutritional Risk Acuity 3: Fair Appetite Past Medical History: PE, HTN, pneumonia, chronic organic brain syndrome, CVA Nutritional Acuity: 3-Mild Energy Requirement: 1350 (M- StJ) Protein Requirement: 55 (1gm/kg) Fluid Requirement: 1650 Diet Type: Diet as Tolerated MAGGY/REG Nutrition Intervention: Cont diet as ordered, Encourage intake, HS snack Additional Diet Restrictions: OFFER NUTR SUPPLMENT Nutrition Monitoring & Eval Nutrition Goals: Eat 75-100% Meal Nutrition Follow-Up: Fair Intake RD Patient Assessment Time: [address] Assessment Type: RD Re-Assessment Patient Nutrition Acuity: 3-Mild Follow Up Date: Mar 01, 2018 Nutritional Comment: 02/18 Pt admitted post CVA. Pt on regular diet and eating 50- 100% of meals. alb 3.2 (02/13/18). Will cont to monitor and encourage intake. 02/22 Pt cont on MAGGY. Intake average 54%. Will offer nutr supplments to increase kcal and protein. Cont to monitor and encourage intake. HAMZAH ALLEN Feb 22, 2018 08:59
[2018-02-22] MEDS: ENOXAPARIN 40 MG/0.4ML SYR SC SCH (09:00)
[2018-02-22] MEDS: amLODIPine BESYL(*) 2.5 MG TAB PO SCH (09:41)
[2018-02-22] MEDS: LISINOPRIL 10 MG TAB PO SCH (09:41)
[2018-02-22] MEDS: ASPIRIN 81 MG CHEW PO SCH (09:41)
[2018-02-22 16:10] VITALS: BP 139/76
[2018-02-23 08:00] VITALS: BP 150/74
[2018-02-23] MEDS: amLODIPine BESYL(*) 2.5 MG TAB PO SCH (09:18)
[2018-02-23] MEDS: ASPIRIN 81 MG CHEW PO SCH (09:18)
[2018-02-23] MEDS: LISINOPRIL 10 MG TAB PO SCH (09:18)
[2018-02-23] MEDS: ENOXAPARIN 40 MG/0.4ML SYR SC SCH (09:19)
--- NOTE | 2018-02-23 09:47 | SPEECH INITIAL EVALUATION ---
SPEECH THERAPY surgical supervisor: Gertrude Ruiz MS, CCC-WORK CHECKER, Madeleine Betancourt, [facility] Type of Assessment: Dysphagia and Cognitive Evaluation Patient: Tere Johnson : 1940, 77yrs Evaluation Date: 02-17-2018 BACKGROUND The patient is a 77 year old female who was admitted to [facility] on 02-12-18 when her caregiver noticed that the patient was having difficulty speaking. The patient s medical history is also consistent with chronic organic brain syndrome and acute ischemic stroke. The patient was aware of her difficulty w/ her speech and was oriented to person, not to place and time. An ST evaluation was ordered to further assess cognitive communication in regard to IADLs and swallow function. PREVIOUS LEVEL OF FUNCTION: Primary Medical Diagnosis: Chronic organic brain syndrome Prior Hospitalization: See chart for details. Prior Level of Function: See chart for details. Medical Complications/Past Medical History: See chart for details LOC / Participation: alert, confused, agitated, and noncompliant Follows instructions: Intermittent. Often noncompliant Orientation: oriented to person Functional Communication Deficits impact swallow function/safety, or response to therapy: Yes VOICE Vocal Deficits: No COGNITION The FROMAJE was used to assess the seven aspects of mental status, including: Function, reason, orientation, memory, arithmetic, judgement, and emotion. The patient completed all subtests except for arithmetic. Results are as follows: FROMAJE Function 3 Because of mental impairment, resident needs 24 hour support and supervision 7 days/week. Reasoning 3 Resident was completely unable to ascribe any meaning or gave a totally incorrect answer. Orientation 3 Resident made significant errors in two of three areas: time, place, or self. Memory 3 Resident made significant errors in two or three areas: distant, recent , or immediate memory. Arithmetic - - Judgement 2 Some poor judgement demonstrated. Emotional State 3 Extremely unreal or inappropriate ideas (delusional or hallucinatory, extreme depression, or suicidal ideation. Total Score 17 Severe dementia or depression The patient did not complete the arithmetic section of the FROMAJE and refused to answer after multiple directions were given. This could be due to the patient s agitation or confusion. Without that subtest, the patients overall score placed her in the severe dementia or depression range. A staging level cannot be determined due to the patient refusing to complete the arithmetic subtest. The patient demonstrated confusion throughout the evaluation in response to biographical questions, orientation questions, temporal questions, and the reason why she came to the hospital. LANGUAGE The patient demonstrated some difficulty w/ speech at the conversational level. The patient completed an informal naming assessment and named 8/10 objects presented. The patient demonstrates awareness of her difficulty with speech and occasionally stated, I cannot talk, throughout the evaluation. COMMUNICATIVE TASKS Patient has functional communication tasks for independence and safety including communication of medical details. COMMUNICATIVE TASKS DISCOURSE SKILLS Functional Not Functional Intermittent INITIATION: Gains attention Greets others + Asks questions + TOPIC : Responds to Qs + Clarification + Elaboration + EYE CONTACT + CONVERSATION: Interrupts + Speaking turns + NONVERBAL: Proximity + Nods to acknowledge + Gets attention + Limited functional communication. The patient responds to her name by using eye contact but did not demonstrate independent initiation of communication throughout the evaluation. DYSPHAGIA Functional Oral Intake Scale (FOIS): Total oral diet w/ no restrictions Sialorrhea: No Xerostomia: Yes Supplemental Oxygen Use: No Respiratory Rate: 18bpm COPD Dx: Yes Oral Structure and Function: Patient was non-compliant during the examination. Teeth, lips and tongue symmetry WNL. Pain with Swallow: Denies Respiratory/Swallow Coordination: Typically patterned (ie. exhale/swallow/ exhale). Oral Stage Oral Stage Dysphagia: No Self Feeds: Yes w/min assist. Compensatory Maneuvers Used: None. Assistance Required: Min assist for preparing food. Comment: The patient demonstrated an oral preparation that was WNL for swallow function. Pharyngeal Stage Pharyngeal Stage Dysphagia: No s/s of acute pharyngeal stage dysphagia including penetration/ aspiration with liquids or foods. Compensatory Maneuvers Used: None. Assistance Required: None. Indication of acute aspiration witnessed or reported by patient, family or staff : No Aspiration Risk: Increased 2nd to patients diagnosis of organic brain syndrome and patient is geriatric 64+. Comment: No s/s of penetration or aspiration noted w/ thin, nectar, puree, mechanical soft, mixed consistency, and solid foods. Esophageal Stage Esophageal Stage Dysphagia Indicated: No. Odynophagia at/below Suprasternal Notch: Denies Globus Sensation at/below Suprasternal Notch: Denies Compensatory Maneuvers Used: None Assistance Required: None Comment: WNL ST ASSESSMENT SUMMARY DYSPHAGIA The patient passed swallow assessment for thin, nectar, puree, mechanical soft, mixed consistency, and solid foods. Recommend a regular diet as tolerated w/ thin liquids and pills w/thin liquids. Aspiration Risk: Increased 2nd to patients diagnosis of organic brain syndrome and patient is geriatric 64+. Functional Oral Intake Scale (FOIS): Total oral diet w/ no restrictions FUNCTIONAL COMMUNICATION: The patient presents with cognitive linguistic deficits that reduce functional communication in the home and community, reducing safety and independence. The patient responds to her name by using eye contact but did not demonstrate independent initiation of communication throughout the evaluation. COGNITION The patients overall score on the FROMAJE was 17, indicating that she was in the severe dementia or depression range. The patient demonstrated confusion throughout the evaluation in response to biographical questions, orientation questions, temporal questions, and the reason why she came to the hospital. Speech Therapy Need ST will address swallow deficits for safety and independence, Functional communication deficits. RECOMMENDATIONS 1. Diet Modification: Food: Regular diet as tolerated, Liquids: Regular thin liquids. 2. Pills: w/ thin liquids as tolerated. 3. Speech Therapy: The patient would benefit from ST 3x/wk to address the above described concerns regarding language and cognition. PLAN OF CARE Short Term Goals 1. The patient will be provided w/ written and visual safety precautions to assist w/ IADLs and ADLs. 2. The patient will practice word finding strategies given visual and verbal assist w/ 90% accuracy. Facility Supervisor Goals 1. The patient will complete IADLs and ADLs safely w/ mod assist and visual assist. 2. The patient will demonstrate functional communication for IADLs and ADLs. Thank you for this referral. Gertrude Ruiz M.S., [facility])-WORK CHECKER, Dilip Betancourt., [facility] Speech Therapist GLENN
--- NOTE | 2018-02-23 10:34 | Hospitalist Progress Note ---
Physical Exam Vital Signs Date Time Temp Pulse Resp B/P (MAP) Pulse Ox O2 Delivery O2 Flow Rate FiO2 02/23/18 02:54 Room Air 02/22/18 16:10 98.9 76 20 139/76 (97) 94 Intake and Output 02/24/18 07:00 # Voids 1 Assessment and Plan Problems: (1) Acute ischemic stroke Status: Acute Assessment & Plan: The patient presented with difficulty finishing sentences. Her CT scan showed chronic white matter changes, but no acute stroke. However, an MRI did show 2 small foci of abnormal restricted diffusion in the posterior white matter of the merida radiata bilaterally, consistent with small focal infarcts. She has been started on aspirin. She has also been evaluated by physical, occupational, and speech therapy. She has been transfered to [facility] for ongoing rehabilitation. (2) HTN (hypertension) Status: Chronic Assessment & Plan: She has been chronic treatment with lisinopril. Amlodipine was added during this admission. Overall BPs have been reasonable. (3) Chronic organic brain syndrome Status: Chronic Assessment & Plan: Chronic. MADI OBRIEN MD Feb 23, 2018 10:34
[2018-02-23] MEDS ORDERED: ASPI-816 PO (10:37)
[2018-02-23] MEDS ORDERED: LISI-362 PO (10:37)
[2018-02-23] MEDS ORDERED: AMLO2.5T74 PO (10:37)
--- NOTE | 2018-02-23 10:39 | Hospitalist Depart ---
Discharge Summary Reason for Hosp/Final Diag: (1) Acute ischemic stroke Status: Acute Hospital Course & Plan: The patient presented with difficulty finishing sentences. Her CT scan showed chronic white matter changes, but no acute stroke. However, an MRI did show 2 small foci of abnormal restricted diffusion in the posterior white matter of the meirda radiata bilaterally, consistent with small focal infarcts. She has been started on aspirin. She has also been evaluated by physical, occupational, and speech therapy. She has been transfered to [facility] for ongoing rehabilitation. (2) HTN (hypertension) Status: Chronic Hospital Course & Plan: She has been chronic treatment with lisinopril. Amlodipine was added during this admission. Overall BPs have been reasonable. (3) Chronic organic brain syndrome Status: Chronic Hospital Course & Plan: Chronic. Departure Weight (Pounds): 123 Weight (Ounces): 1.0 Condition: Improved Discharge: Home, Home Health PT/OT Follow Up For: PT For Strengthening Home Health RN Follow Up For: Nursing Assessment Home Health CUSTOM HOME INSTALLER Follow Up For: ADL Assistance Time Spent: < 30 min Discharge Instructions Home Meds Reported Medications Ibuprofen (ADVIL) 200 Mg Capsule, 1-2 CAP PO Q6-8H, CAPSULE 02/13/18 Lisinopril (LISINOPRIL) 40 Mg Tablet, 40 MG PO QDAY, TAB 10/16/17 Follow up Referrals: Family Practice @ [facility] with Padmini Mercedes PA-C Diet: Regular Activity: As Tolerated, With Walker Special Instructions: Follow up with Padmini Mercedes PA-C in one to two weeks after discharge. Copies to: PADMINI MERCEDES PA-C [id number] Certification Face to Face Home Health Certification Institutional Provider conducted the [id number] encounter. Electronic Undersigning Physician Certifies Home Health. I certify that the patient has been under my care and that I had a [id number] encounter that meets the physician [id number] encounter requirements with this patient. This patient is home-bound due to safety issues and continues to require assistance with ADL's. I certify that based on my findings, that Nursing, Aides and the following Home Health services are medically necessary: PT and OT Medical Necessity: Nursing, Rehab Date Face to Face Conducted: Feb 23, 2018 Problem Qualifiers (1) HTN (hypertension): Hypertension type: essential hypertension Qualified Codes: I10 - Essential ( primary) hypertension MADI OBRIEN MD Feb 23, 2018 10:39
[2018-02-23 15:35] VITALS: BP 174/88
[2018-02-24 07:45] VITALS: BP 139/77
[2018-02-24] MEDS: LISINOPRIL 10 MG TAB PO SCH (09:37)
[2018-02-24] MEDS: ASPIRIN 81 MG CHEW PO SCH (09:37)
[2018-02-24] MEDS: amLODIPine BESYL(*) 2.5 MG TAB PO SCH (09:37)
--- NOTE | 2018-02-24 15:28 | ECF H&P BLANK ---
F H&P UPDATE History of Present Illness History of Present Illness 77yo female with dementia and HTN who was brought to the ER for difficulty speaking. She was in her normal state of health until the afternoon when her caregiver noted that the patient was not finishing her sentences. There were no reported other deficits. The patient remembers the event and is not clear how long it lasted. She denies focal weakness, cp, sob, fevers, chills, nausea , diarrhea, dysuria, or cough. She denies any new medications. In the ER, she was given a liter of fluid. The patient was diffusely weak and wasn't able to safely ambulate. 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 Home Meds Reported Medications Lisinopril (LISINOPRIL) 40 Mg Tablet, 40 MG PO QDAY, TAB 10/16/17 Allergies: Coded Allergies: No Known Drug Allergies (Verified , 02/12/18) Hx Smoking: No Caffeine Intake: Coffee Caffeine/Cups Per Day: DECAF COFFEE MOSTLY Hx Alcohol Use: No Hx Substance Use Disorder: No Review of Systems All Systems Reviewed/Normal: Yes, Except as Noted Exam Vital Signs Vital Signs Date Time Temp Pulse Resp B/P (MAP) Pulse Ox O2 Delivery O2 Flow Rate FiO2 02/12/18 21:03 101 90 02/12/18 21:00 172/100 (124) 02/12/18 20:06 98.9 18 Room Air General Appearance: Alert, Awake, Other (Appears to be shivering, normal work of breathing.) Neuro: No Gross deficits (She knows where she is and why she is here. ) ENT: Moist Mucous Membranes Cardiovascular: Regular Rate and Rhythm, No JVD Respiratory: Clear to Auscultation GI: Abd Soft and Non-Tender Extremities: No Edema Integumentary: No Jaundice, No Cyanosis Medical Decision Making Data Points Result Diagram: 02/12/18194902/12/181949 Item Value Date Time Neutrophils (%) (Auto) 88.7 % H 02/12/181949 Lymphocytes (%) (Auto) 5.3 % L 02/12/181949 Monocytes (%) (Auto) 5.6 % 02/12/181949 Eosinophils (%) (Auto) 0.0 % L 02/12/181949 Total Bilirubin 0.7 mg/dl 02/12/181949 Aspartate Amino Transf (AST/SGOT) 22 U/L 02/12/181949 Alanine Aminotransferase (ALT/SGPT) 23 U/L 02/12/181949 Alkaline Phosphatase 86 U/L 02/12/181949 Troponin I 0.033 ng/ml 02/12/181949 Troponin I 0.064 ng/ml 02/13/18 0015 Lactate 1.0 mmol/L 02/12/182124 Thyroid Stimulating Hormone (TSH) 0.46 uIU/ml 12/02/17 0547 Urine RBC 1 /HPF 02/12/182237 Urine WBC <1 /HPF 02/12/182237 Urine Squamous Epithelial Cells Many /LPF H 02/12/182237 Urine Bacteria Negative /HPF 02/12/182237 Urine Mucus None /HPF 02/12/182237 EKG / Imaging Imaging CXR - 1. Unchanged mild cardiomegaly and probable chronic findings discussed with an acute cardiopulmonary abnormality. 2. Moderate size hiatal hernia. Head CT - 1. No acute intracranial abnormality. 2. Moderate volume loss and severe probable chronic white matter disease similar to prior. Assessment and Plan Problems: (1) Difficulty with speech Status: Acute Assessment & Plan: The patient presented with difficulty with finishing sentences. It started in the afternoon of 02/12 and had resolved by the time I had evaluated her. She is aware of the event and is unsure when it resolved. She had no focal weakness, and has a non-focal exam. Will give her ASA and get an MRI of the brain. (2) Weakness Status: Acute Assessment & Plan: This occurred with the difficulty with speech, but has persisted. It is diffuse and limits her ability to ambulate. Concerned about an infection, but there is no obvious source. Will check CPK, ESR, and CRP. She has a borderline elevated troponin and an ECG with new T inversion. Will recheck Troponin in the morning. She denies any chest pain. (3) Leukocytosis Status: Acute Assessment & Plan: Etiology unclear. She appears to have some shivers and her skin is warm. Blood cultures were drawn. CXR and UA are wnl. Will check for influenza. Will follow closely. (4) HTN (hypertension) Status: Chronic Assessment & Plan: I don't believe she is on any medication for this. Will give Labetalol IV prn. (5) Chronic organic brain syndrome Status: Chronic Copies to: PADMINI BROWN PA-C Venous Thromboembolism Antithrombotics Is Pt On Any Antithrombotics?: No Exam Sepsis Risk: No Definite Risk Problem Qualifiers (1) Leukocytosis: Leukocytosis type: unspecified Qualified Codes: D72.829 - Elevated white blood cell count, unspecified BENJAMIN POLANCO MD Feb 13, 2018 02:01 <Electronically signed by BENJAMIN POLANCO MD> D/ 0 0 0 PETELARS/FAITH CC: PADMINI BROWN PA-C The above acute care issues are resolving and/or stable. Patient requires fdc and/or skilled rehabilitation and is ready for admission to [facility]. Any change in condition is described below. ALPESH MURILLO DO Feb 24, 2018 15:28
[2018-02-24 17:00] VITALS: BP 161/83
[2018-02-25 07:30] VITALS: BP 154/94
[2018-02-25] MEDS: amLODIPine BESYL(*) 2.5 MG TAB PO SCH (08:23)
[2018-02-25] MEDS: ASPIRIN 81 MG CHEW PO SCH (08:23)
[2018-02-25] MEDS: LISINOPRIL 10 MG TAB PO SCH (08:23)
[2018-02-25 15:37] VITALS: BP 133/83
[2018-02-26 08:15] VITALS: BP 149/88
[2018-02-26] MEDS: ASPIRIN 81 MG CHEW PO SCH (08:38)
[2018-02-26] MEDS: LISINOPRIL 10 MG TAB PO SCH (08:38)
[2018-02-26] MEDS: amLODIPine BESYL(*) 2.5 MG TAB PO SCH (08:38)
--- NOTE | 2018-02-26 21:45 | PT ECF NOTE ---
Type of Note: Discharge Note Primary Medical Diagnosis: Acute Ischemic Stroke Physical Therapy Evaluation Date: 02/17/18 SUBJECTIVE: Prior Hospitalization: [facility] 02/13/18 - 02/17/18 Prior Level of Function: Unclear, pt was receiving services 3x/day via [facility]. Pt's son stays with the patient for 2 weeks at a time, every 2 weeks Prior Living Status: Bi-level house, Alone Community Services: Home health care, Meals on Wheels Home Accessibility: Unclear, there may be 2-3 stairs to enter the home Equipment Owned: Tub/shower chair Medical Complications/Past Medical History: See EMR Psychosocial Support: Son, lives in [place] Pain Scale (0-10): Pt reports that her R) foot is "always sore" OBJECTIVE: Strength: Pt demos 4-/5 in B) LE general strength during functional mobility , but not able to follow cues for manual muscle testing. ROM: R) foot and ankle externally rotate during gait Sensation: Pt denies any paresthesias Other Neuro findings: None noted Bed Mobility: SBA Transfers: SBA with RW from dining room chair Gait: SBA x 300' with RW Stairs: Not addressed due to pt refusal Tug test: 44 seconds with [id number] verbal cues to complete and ambulated an additional 5 feet before turning around to return to chair. Gait Speed (0.6m/second cannot function independently): 0.125 m/sec ASSESSMENT: Pt fluctuates in her desire to participate and her level of cognition to be able to follow cues or instructions. Pt has been able to complete 300' ambulation with step-through pattern, however, when she becomes distracted she returns to a step-to pattern. Pt does not always respond to verbal cues and occasionally requires both tactile and visual cues as well. Pt demos not significant carry-over of safety awareness trng with FWW and would benefit from 24 hour care to ensure safety in the home environment. Pt will return home with her son today and family will increase [facility] services as needed. Problem List/Current Limitations: Pain, Decreased activity gilbert, Decreased strength, Decreased balance, Generalized weakness, Memory deficits, Decreased problem solving Short Term Goals: 1: Pt to complete bed mobility with Felipe and HOB flat- Met 2: Pt to complete transfers with SBA and least restrictive AD - Met 3: Pt to ambulate 200' with SBA and least restrictive AD - Met 4: Pt to asc/desc 4 stairs with SBA - Pt declined to participate Snf Goals: Pt to d/c home with appropriate level of assistance Patient Goals: Non verbalized Rehabilitation Prognosis: Fair Barriers for Discharge: Cognitive deficit, high level of independence required to d/c home PLAN: Pt to discharge home with son available and plan to increase level of [facility] services as needed. Thank you for this referral. If you have any questions, concerns, or comments about this report or plan, please contact me at . H. Sirisha Momin, PT, MPT MTDD
--- NOTE | 2018-02-28 09:31 | OT ECF NOTE ---
Type of Note: Discharge Note Primary Medical Diagnosis: Generalized weakness Occupational Therapy Evaluation Date: 02/17/18 SUBJECTIVE: Prior Hospitalization: [facility] 02/12/18 thru 02/17/18 Prior Level of Function: Prior to admission, pt reports (I) with ADLs and assist from [facility] for IADLs. She is oriented to self and place but not current situation or date. Pt is frequently confused and disoriented (recommend 24/7 care for safety). Her daughter lives in [place] and son lives out of state. Prior Living Status: Bi-level house, Alone Community Services: [facility] (possibly 3x/day), Meals on Wheels Home Accessibility: Stairs without rails, All needs on one level, Tub/shower combination Equipment Owned: Tub/shower chair Medical Complications/Past Medical History: Hx of dementia and HTN Psychosocial Support: Son provides 24/7 care every two weeks. Recommend family consider 24/7 all the time. 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 Occasional v/c's for appropriate use. Pt likely furniture crawls at home. Transfer Ability: SBA ADL: Upper body dressing: Assistive device: None Upper body dressing ability: Minimum assistance (assist from [facility] for dressing per daughter) Lower body dressing: Assistive device: None Lower body dressing ability: Moderate assistance (assist from [facility] for dressing per daughter) Toileting: Assistive device: Grab bars Toileting ability: SBA Grooming/hygiene: Assistive device: None Grooming ability: SBA Bathing: Assistive device: Shower chair Bathing ability: Minimum to Moderate assistance (assist from [facility] for bathing per daughter) Standardized Assessment: Genet Index of Activities of Daily Livin/20 at initial evaluation (02/17). 11/17 at discharge (02/26/18). ASSESSMENT: Tere presented to [facility] with significant weakness and poor balance limiting safe engagement with ADLs. She has improved her strength and (I) with functional transfers and mobility. She occasionally requires Min-Mod A for all ADLs for safety and sequencing. It is recommended that Tere discharge home with 24/7 care and assist for ADLs/IADLs. Problem List/Current Limitations: Decreased activity tolerance Decreased strength Decreased ROM Poor safety awareness Memory deficits Short Term Goals: 1) Pt will be CGA UB/LB dressing. Goal not met. 2) Pt will be CGA grooming/hygiene. Goal met. 3) Pt will be CGA toileting. Goal met. 4) Pt will be CGA shower task. Goal not met. 5) Pt Genet Index of ADLs score will increase by 2 points. Goal met. 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 Thank you for this referral. If you have any questions, concerns, or comments about this report or plan, please contact me at . Victoria Pope MS, OTR/L Occupational Therapist [facility]
== END 2018-02-26 10:45 | disposition home health service (06) | DRG 66 ==
LOC: ECF 09:51
PROVIDERS: ADMIT Family Medicine; ATTEND Family Medicine
DX: I63.8 Other cerebral infarction (principal); I10 Essential (primary) hypertension; R47.9 Unspecified speech disturbances; F09 Unspecified mental disorder due to known physiological condition; F03.90 Unspecified dementia, unspecified severity, without behavioral disturbance, psychotic disturbance, mood disturbance, and anxiety; Z86.711 Personal history of pulmonary embolism
CPT/HCPCS: 97161; 97165; J1650

== ENCOUNTER 2019-01-19 12:17 | Emergency (ER) | payer MEDICARE, OTHER ==
[2017-12-02 08:51] VITALS: Wt 72.6 kg
[2019-01-19] MEDS ORDERED: NS(*) 0.9% 1000 ML BAG 1,000 ML IV ONE (12:19)
[2019-01-19 12:40] LABS: PLATELET COUNT, AUTOMATED 378 K/uL (150-450)
--- NOTE | 2019-01-19 12:40 | ER Report ---
History and Physical Time Seen By MD: 12:35 Hx. of Stated Complaint: fall down for unknown amount of time HPI/ROS CHIEF COMPLAINT: Fall HISTORY OF PRESENT ILLNESS: Patient is an 78-year-old female who reportedly fell at home this morning as she attempted to get out of bed. Patient was found by home health who contacted EMS for transport. Patient is unclear about how she fell however she does have a 6 cm laceration on her forehead but denies other pain at this time. Patient denies being on anticoagulants. Patient has lisinopril, amlodipine listed as home medications. Patient lives by herself and has home health visitation. Denies recent illnesses, chest pain, shortness breath, abdominal pain, nausea, vomiting, fevers or chills, extremity pain. REVIEW OF SYSTEMS: Constitutional: No fever, no chills. Eyes: No discharge. ENT: No sore throat. Cardiovascular: No chest pain, no palpitations. Respiratory: No cough, no shortness of breath. Gastrointestinal: No abdominal pain, no vomiting. Genitourinary: No hematuria. Musculoskeletal: No back pain. Skin: + 6 cm laceration to forehead Neurological: No headache, moving all extremities Allergies: Coded Allergies: No Known Drug Allergies (Verified , 01/19/19) Home Meds Active Scripts Lisinopril (LISINOPRIL) 10 Mg Tablet, 10 MG PO QDAY, #30 TAB Prov:MADI OBRIEN MD 02/23/18 Aspirin (Children's Aspirin) 81 Mg Tab.chew, 81 MG PO QDAY, #30 TAB.CHEW Prov:MADI OBRIEN MD 02/23/18 Amlodipine Besylate (AMLODIPINE BESYLATE) 2.5 Mg Tablet, 2.5 MG PO QDAY, #30 TAB Prov:MADI OBRIEN MD 02/23/18 Discontinued Reported Medications Ibuprofen (ADVIL) 200 Mg Capsule, 1-2 CAP PO Q6-8H, CAPSULE 02/13/18 Lisinopril (LISINOPRIL) 40 Mg Tablet, 40 MG PO QDAY, TAB 10/16/17 Hx Smoking: No Hx Substance Use Disorder: No Hx Alcohol Use: No Constitutional Vital Sign - Last 24 Hours 01/19/19 01/19/19 01/19/19 01/19/19 12:17 12:18 12:47 12:51 Temp 98.4 Pulse 72 76 77 Resp 12 18 B/P (MAP) 92/87 (89) 92/87 161/91 (114) Pulse Ox 88 93 88 O2 Delivery Room Air 01/19/19 01/19/19 01/19/19 01/19/19 13:15 13:17 13:30 13:45 Pulse 78 Resp 18 B/P (MAP) 160/100 (120) 138/82 (100) 132/93 (106) Pulse Ox 90 01/19/19 01/19/19 01/19/19 01/19/19 13:47 13:52 14:00 14:22 Pulse 75 79 73 Resp 21 9 13 B/P (MAP) 138/95 (109) Pulse Ox 91 92 92 01/19/19 14:30 B/P (MAP) 128/80 (96) Physical Exam General Appearance: The patient is alert, has no immediate need for airway protection and no signs of toxicity. No acute distress Eyes: Pupils equal and round no pallor or injection. ENT, Mouth: Mucous membranes are moist. No loose dentition Respiratory: There are no retractions, lungs are clear to auscultation. Cardiovascular: Regular rate and rhythm. Gastrointestinal: Abdomen is soft and non tender, no masses, bowel sounds normal. Neurological: No focal neurological deficits, alert and oriented Skin: 6 and regular laceration vertical orientation of the forehead Musculoskeletal: Neck is supple non tender. Extremities are nontender, nonswollen and have full range of motion. DIFFERENTIAL DIAGNOSIS: After history and physical exam differential diagnosis was considered for mechanical fall, dehydration, loss of consciousness, concussion, intracranial bleed, fracture, electrolyte abnormality Medical Decision Making Data Points Result Diagram: 01/19/19 1228 01/19/19 1228 Laboratory Hematology Test 01/19/19 12:28 01/19/19 15:08 Red Blood Count 5.03 M/uL (4.17-5.56) Mean Corpuscular Volume 86.1 fL (80.0-96.0) Mean Corpuscular Hemoglobin 28.4 pg (26.0-33.0) Mean Corpuscular Hemoglobin Concent 33.0 g/dL (32.0-36.0) Red Cell Distribution Width 13.7 % (11.5-14.5) Mean Platelet Volume 8.0 fL (7.2-11.1) Neutrophils (%) (Auto) 80.4 % (39.4-72.5) Lymphocytes (%) (Auto) 8.0 % (17.6-49.6) Monocytes (%) (Auto) 10.8 % (4.1-12.4) Eosinophils (%) (Auto) 0.3 % (0.4-6.7) Basophils (%) (Auto) 0.5 % (0.3-1.4) Nucleated RBC Relative Count (auto) 0.1 /100WBC Neutrophils # (Auto) 6.4 K/uL (2.0-7.4) Lymphocytes # (Auto) 0.6 K/uL (1.3-3.6) Monocytes # (Auto) 0.9 K/uL (0.3-1.0) Eosinophils # (Auto) 0.0 K/uL (0.0-0.5) Basophils # (Auto) 0.0 K/uL (0.0-0.1) Nucleated RBC Absolute Count (auto) 0.01 K/uL Prothrombin Time 14.0 seconds (12.0-14.4) Prothromb Time International Ratio 1.07 Activated Partial Thromboplast Time 33 seconds (23-35) Blood Gas Patient Temperature 98.4 DEGREES Venous Blood pH 7.38 (7.31-7.41) Venous Blood Partial Pressure CO2 39 mmHg Venous Blood Partial Pressure O2 36 mmHg Venous Blood HCO3 23 mmol/L Venous Blood Oxygen Saturation 68 % Venous Blood Base Excess -2 mmol/L Carboxyhemoglobin 3.0 % (< 5.0) Oxygen Liters/Minute Room air Sodium Level 137 mmol/L (137-145) Potassium Level 3.9 mmol/L (3.5-5.0) Chloride Level 106 mmol/L (98-107) Carbon Dioxide Level 22 mmol/L (22-31) Blood Urea Nitrogen 16 mg/dl (7-18) Creatinine 0.60 mg/dl (0.52-1.04) Glomerular Filtration Rate Calc > 60.0 Random Glucose 100 mg/dl (75-110) Calcium Level 8.9 mg/dl (8.4-10.2) Total Bilirubin 0.4 mg/dl (0.2-1.3) Aspartate Amino Transf (AST/SGOT) 47 U/L (0-35) Alanine Aminotransferase (ALT/SGPT) 27 U/L (0-56) Alkaline Phosphatase 83 U/L (0-126) Total Creatine Kinase 456 U/L (30-135) Troponin I 0.014 ng/ml Total Protein 7.4 g/dl (6.3-8.2) Albumin 4.3 g/dl (3.5-5.0) Thyroid Stimulating Hormone (TSH) 1.58 uIU/ml (0.46-4.68) Urine Color Yellow Urine Clarity Clear Urine pH 5.0 pH (4.8-9.5) Urine Specific [place] 1.025 Urine Protein Negative mg/dL (NEGATIVE) Urine Glucose (UA) Negative mg/dL (NEGATIVE) Urine Ketones Trace mg/dL (NEGATIVE) Urine Blood Negative (NEGATIVE) Urine Nitrite Negative (NEGATIVE) Urine Bilirubin Negative (NEGATIVE) Urine Urobilinogen 2.0 mg/dL (0.2-1.9) Urine Leukocyte Esterase Negative (NEGATIVE) Urine RBC None /HPF (0-2/HPF) Urine WBC 1 /HPF (0-5/HPF) Urine Squamous Epithelial Cells Few /LPF (NONE-FEW) Urine Bacteria Negative /HPF (NONE-FEW) Urine Mucus None /HPF (NONE-FEW) Chemistry Test 01/19/19 12:28 01/19/19 15:08 White Blood Count 8.0 k/uL (4.5-11.0) Red Blood Count 5.03 M/uL (4.17-5.56) Hemoglobin 14.3 g/dL (12.0-16.0) Hematocrit 43.3 % (34.0-47.0) Mean Corpuscular Volume 86.1 fL (80.0-96.0) Mean Corpuscular Hemoglobin 28.4 pg (26.0-33.0) Mean Corpuscular Hemoglobin Concent 33.0 g/dL (32.0-36.0) Red Cell Distribution Width 13.7 % (11.5-14.5) Platelet Count 378 K/uL (150-450) Mean Platelet Volume 8.0 fL (7.2-11.1) Neutrophils (%) (Auto) 80.4 % (39.4-72.5) Lymphocytes (%) (Auto) 8.0 % (17.6-49.6) Monocytes (%) (Auto) 10.8 % (4.1-12.4) Eosinophils (%) (Auto) 0.3 % (0.4-6.7) Basophils (%) (Auto) 0.5 % (0.3-1.4) Nucleated RBC Relative Count (auto) 0.1 /100WBC Neutrophils # (Auto) 6.4 K/uL (2.0-7.4) Lymphocytes # (Auto) 0.6 K/uL (1.3-3.6) Monocytes # (Auto) 0.9 K/uL (0.3-1.0) Eosinophils # (Auto) 0.0 K/uL (0.0-0.5) Basophils # (Auto) 0.0 K/uL (0.0-0.1) Nucleated RBC Absolute Count (auto) 0.01 K/uL Prothrombin Time 14.0 seconds (12.0-14.4) Prothromb Time International Ratio 1.07 Activated Partial Thromboplast Time 33 seconds (23-35) Blood Gas Patient Temperature 98.4 DEGREES Venous Blood pH 7.38 (7.31-7.41) Venous Blood Partial Pressure CO2 39 mmHg Venous Blood Partial Pressure O2 36 mmHg Venous Blood HCO3 23 mmol/L Venous Blood Oxygen Saturation 68 % Venous Blood Base Excess -2 mmol/L Carboxyhemoglobin 3.0 % (< 5.0) Oxygen Liters/Minute Room air Glomerular Filtration Rate Calc > 60.0 Calcium Level 8.9 mg/dl (8.4-10.2) Total Bilirubin 0.4 mg/dl (0.2-1.3) Aspartate Amino Transf (AST/SGOT) 47 U/L (0-35) Alanine Aminotransferase (ALT/SGPT) 27 U/L (0-56) Alkaline Phosphatase 83 U/L (0-126) Total Creatine Kinase 456 U/L (30-135) Troponin I 0.014 ng/ml Total Protein 7.4 g/dl (6.3-8.2) Albumin 4.3 g/dl (3.5-5.0) Thyroid Stimulating Hormone (TSH) 1.58 uIU/ml (0.46-4.68) Urine Color Yellow Urine Clarity Clear Urine pH 5.0 pH (4.8-9.5) Urine Specific [place] 1.025 Urine Protein Negative mg/dL (NEGATIVE) Urine Glucose (UA) Negative mg/dL (NEGATIVE) Urine Ketones Trace mg/dL (NEGATIVE) Urine Blood Negative (NEGATIVE) Urine Nitrite Negative (NEGATIVE) Urine Bilirubin Negative (NEGATIVE) Urine Urobilinogen 2.0 mg/dL (0.2-1.9) Urine Leukocyte Esterase Negative (NEGATIVE) Urine RBC None /HPF (0-2/HPF) Urine WBC 1 /HPF (0-5/HPF) Urine Squamous Epithelial Cells Few /LPF (NONE-FEW) Urine Bacteria Negative /HPF (NONE-FEW) Urine Mucus None /HPF (NONE-FEW) Coagulation Test 01/19/19 12:28 Prothrombin Time 14.0 seconds Prothromb Time International Ratio 1.07 Activated Partial Thromboplast Time 33 seconds Urinalysis Test 01/19/19 15:08 Urine Color Yellow Urine Clarity Clear Urine pH 5.0 pH (4.8-9.5) Urine Specific [place] 1.025 Urine Protein Negative mg/dL (NEGATIVE) Urine Glucose (UA) Negative mg/dL (NEGATIVE) Urine Ketones Trace mg/dL (NEGATIVE) Urine Blood Negative (NEGATIVE) Urine Nitrite Negative (NEGATIVE) Urine Bilirubin Negative (NEGATIVE) Urine Urobilinogen 2.0 mg/dL (0.2-1.9) Urine Leukocyte Esterase Negative (NEGATIVE) Urine RBC None /HPF (0-2/HPF) Urine WBC 1 /HPF (0-5/HPF) Urine Squamous Epithelial Cells Few /LPF (NONE-FEW) Urine Bacteria Negative /HPF (NONE-FEW) Urine Mucus None /HPF (NONE-FEW) EKG/Imaging EKG Interpretation 12 lead EKG: Normal sinus rhythm with PVCs, ventricular rate 67, QTC 460, no ischemic changes identified Rhythm: normal sinus rhythm Anna: normal QRS: normal ST segments: normal Monitor Interpretation: Normal Sinus Rhythm Imaging Location: [facility] [place] Patient: Tere Johnson : 1940 Visit/Account:[id number] Date of Sevice: 01/19/2019 CT CHEST ABDOMEN PELVIS W/O CON HISTORY: fall, back pain ADDITIONAL HISTORY: None. TECHNIQUE: Contiguous axial images acquired through the chest abdomen and pelvis no IV contrast administered.. Coronal and sagittal reformatting was also performed. One of the following dose optimization techniques was utilized in the performance of this exam: Automated exposure control; adjustment of the mA and/or kV according to the patient's size; or use of an iterative reconstruction technique. Specific details can be referenced in the facility's radiology CT exam operational policy. COMPARISON: Chest x-ray 02/12/2018 FINDINGS: CHEST: Lungs/Pleura: There is minimal left basilar discoid atelectasis versus scar. Lung parenchyma is otherwise well-aerated and there is no evidence of pneumothorax. Mediastinum/lymph nodes: Negative. Heart/vessels: Negative. Bones/soft tissues: No fractures identified. ABDOMEN AND PELVIS: Hepatobiliary: Liver is unremarkable. There are several stones in the gallbladder measuring up to 1.7 cm diameter. Spleen: Negative. Pancreas: Negative. Adrenals: Negative. Kidneys ureters and bladder : Negative. Genitalia: There are several calcified fibroids in the uterus, the largest measuring 4.9 x 3.8 cm diameter. GI: Moderate size hiatal hernia seen on previous studies as well. Vessels/spaces/nodes: Moderate vascular plaque seen in the abdominal aorta and iliac vessels. Bones/soft tissues: Remote posterior lumbar interbody fusion L4-5 and L5-S1 with accompanying laminectomies set. There is advanced degenerative disease L1- 2 and L2-3. No acute fractures are identified. Additional findings: None pertinent. IMPRESSION: Negative for acute trauma. Cholelithiasis. Calcified uterine fibroids. Hiatal hernia. Additional benign findings per above. Location: [facility] [place] Patient: Tere Johnson : 1940 Visit/Account:[id number] Date of Sevice: 01/19/2019 CT VERTEBRA CERVICAL (NON CON) History: fall COMPARISON STUDIES: none TECHNIQUE: Contiguous axial images were obtained from the skull base through the upper thoracic spine without IV contrast administration. Coronal and sagittal reformatted images were obtained from the axial source data. One of the following dose optimization techniques was utilized in the performance of this exam: Automated exposure control; adjustment of the mA and/or kV according to the patient's size; or use of an iterative reconstruction technique. Specific details can be referenced in the facility's radiology CT exam operational policy. FINDINGS: Alignment: There is a 3 mm anterolisthesis C3 over C4 which is degenerative in nature. Vertebral bodies: Osseous structures intact. No evidence of fracture. Discs: There is advanced disc space narrowing C4-5, C5-6, and C6-7 compatible with advanced degenerative disease. There is associated moderate bilateral degenerative facet arthropathy Para-vertebral soft tissues: negative Visualized lung / mediastinum: Visualized lung parenchyma normal. No evidence of pneumothorax. IMPRESSION: Negative for acute trauma. Advanced degenerative disc disease C4-5 through C6-7 Location: [facility] [place] Patient: Tere Johnson : 1940 Visit/Account:[id number] Date of Sevice: 01/19/2019 CT BRAIN NO CONTRAST History: fall TECHNIQUE: Contiguous angled axial images were obtained from the vertex through the base of the skull without intravenous contrast. One of the following dose optimization techniques was utilized in the performance of this exam: Automated exposure control; adjustment of the mA and/or kV according to the patient's size; or use of an iterative reconstruction technique. Specific details can be referenced in the facility's radiology CT exam operational policy. COMPARISON STUDIES: 02/12/2018 FINDINGS: Ventricles / sulci / fissures: Prominent compatible with global volume loss Masses / hemorrhage / midline shift: Negative. Intra-axial findings: There is a confluent decreased attenuation to the periventricular white matter unchanged from the previous study. Extra-axial fluid collections: Negative. Intracranial vasculature and dural sinuses: Negative. Skull base / calvarium: Negative. Scalp: There is a scalp laceration over the forehead with a small amount of soft tissue swelling. Visualized mastoid air cells / paranasal sinuses: Well aerated. Orbits: Previous cataract surgery. IMPRESSION: No acute intracranial pathology or hemorrhage identified. 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 ED Course/Re-evaluation ED Course Patient is an 78-year-old female here with complaints of fall this morning out of bed. Patient lives alone and was found by home health who contacted EMS for transport. Patient had a 6 cm laceration to the forehead which was closed using 11 5-[address] imaging of the head, C-spine, chest abdomen pelvis was completed due to patient's complaints of facial trauma and back pain. CT imaging identified no acute fractures. Please see official radiology report for further incidental findings. Labs were remarkable for a mildly elevated CPK not consistent with rhabdomyolysis. Patient was given IV fluid hydration to improve hydration status and washout IV contrast. Patient was hemodynamically stable throughout course, exhibiting no neurological deficits. sanitation worker cleaning equipment was contacted and patient's home health company was also contacted. Home health visits the patient 4 times a day and the patient's daughter will stay with her tonight in order to reassess her home condition. Patient was able to tolerate oral intake, was able to ambulate with assistance of a walker. Return precautions provided, close PCP follow-up recommended. Procedure Patient had a 6 cm vertical laceration of for head which was cleaned and irr igated in the standard fashion. 5 mL of 2% lidocaine with epinephrine was instilled into the wound margins. Laceration was closed using 11 5-0 Ethilon sutures with good approximation. Patient tolerated the procedure well. Hemostasis was achieved Decision to Disposition Date: Jan 19, 2019 Decision to Disposition Time: 15:23 Depart Departure Latest Vital Signs Vital Signs Date Time Temp Pulse Resp B/P (MAP) Pulse Ox O2 Delivery O2 Flow Rate FiO2 01/19/19 14:30 128/80 (96) 01/19/19 14:22 73 13 92 01/19/19 12:18 98.4 Room Air Impression: Primary Impression: Fall Additional Impression: Facial laceration Condition: Improved Disposition: HOME OR SELF-CARE Patient Instructions: Facial Laceration (ED), Fall Prevention (ED) Additional Instructions: No acute fractures or bleeds were identified on CT imaging of your head, neck, chest abdomen pelvis. Your laceration was closed using 11 sutures, please have these removed in 7-10 days. Please monitor for signs of infection such as redness, drainage, swelling. Please follow-up with a family doctor in the next 24-48 hours. Please return immediately if she develop weakness, headaches, blurry vision, difficulty breathing, inability to keep down food or fluids. Problem Qualifiers BEV ONEAL DO Jan 19, 2019 12:40
[2019-01-19 12:53] LABS: INR 1.07
--- NOTE | 2019-01-19 12:55 | EKG ---
FACILITY: [facility] PATIENT NAME: MARYANA BRIGGS : [id number] MR: [id number] V: [id number] EXAM DATE: ORDERING PHYSICIAN: BEV ONEAL TECHNOLOGIST: GAY Tariq Reason : FALL Blood Pressure : / mmHG Vent. Rate : 067 BPM Atrial Rate : 067 BPM P-R Int : 136 ms QRS Dur : 084 ms QT Int : 436 ms P-R-T Axes : 075 031 046 degrees QTc Int : 460 ms Sinus rhythm with premature supraventricular complexes Diffuse baseline artifact - repeat if needed Confirmed by BENTON OBRIEN ([id number]) on 01/19/2019 3:03:43 PM Referred By: JM Confirmed By:BENTON OBRIEN
[2019-01-19] MEDS ORDERED: KETOROLAC 30 MG/ML VIAL IVP ONE (13:30)
--- NOTE | 2019-01-19 13:48 | RADIOLOGY IMAGING REPORT ---
FACILITY: [facility] [place] PATIENT NAME: Tere Johnson : 1940 MR: [id number] V: [id number] EXAM DATE: ORDERING PHYSICIAN: BEV ONEAL TECHNOLOGIST: Location: [facility] [place] Patient: Tere Johnson : 1940 Visit/Account:[id number] Date of Sevice: 01/19/2019 CT BRAIN NO CONTRAST History: fall TECHNIQUE: Contiguous angled axial images were obtained from the vertex through the base of the sku ll without intravenous contrast. One of the following dose optimization techniques was utilized in th e performance of this exam: Automated exposure control; adjustment of the mA and/or kV according to t he patient's size; or use of an iterative reconstruction technique. Specific details can be referen jazmine in the facility's radiology CT exam operational policy. COMPARISON STUDIES: 02/12/2018 FINDINGS: Ventricles / sulci / fissures: Prominent compatible with global volume loss Masses / hemorrhage / midline shift: Negative. Intra-axial findings: There is a confluent decreased attenuation to the periventricular white matter unchanged from the previous study. Extra-axial fluid collections: Negative. Intracranial vasculature and dural sinuses: Negative. Skull base / calvarium: Negative. Scalp: There is a scalp laceration over the forehead with a small amount of soft tissue swelling. Visualized mastoid air cells / paranasal sinuses: Well aerated. Orbits: Previous cataract surgery. IMPRESSION: No acute intracranial pathology or hemorrhage identified. 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 Report Dictated By: Fletcher Londono MD at 01/19/2019 1:40 PM Report E-Signed By: Fletcher Londono MD at 01/19/2019 1:45 PM WSN:[id number]
--- NOTE | 2019-01-19 13:52 | RADIOLOGY IMAGING REPORT ---
[place] [facility] [place] Tere Johnson : 1940 MR: [id number] V: [id number] EXAM DATE: ORDERING PHYSICIAN: BEV ONEAL TECHNOLOGIST: Location: [facility] [place] Patient: Tere Johnson : 1940 Visit/Account:[id number] Date of Sevice: 01/19/2019 CT VERTEBRA CERVICAL (NON CON) History: fall COMPARISON STUDIES: none TECHNIQUE: Contiguous axial images were obtained from the skull base through the upper thoracic spin e without IV contrast administration. Coronal and sagittal reformatted images were obtained from the axial source data. One of the following dose optimization techniques was utilized in the performance of this exam: Automated exposure control; adjustment of the mA and/or kV according to the patient's s ize; or use of an iterative reconstruction technique. Specific details can be referenced in the [facility]'s radiology CT exam operational policy. FINDINGS: Alignment: There is a 3 mm anterolisthesis C3 over C4 which is degenerative in nature. Vertebral bodies: Osseous structures intact. No evidence of fracture. Discs: There is advanced disc space narrowing C4-5, C5-6, and C6-7 compatible with advanced degenerat mateo disease. There is associated moderate bilateral degenerative facet arthropathy Para-vertebral soft tissues: negative Visualized lung / mediastinum: Visualized lung parenchyma normal. No evidence of pneumothorax. IMPRESSION: Negative for acute trauma. Advanced degenerative disc disease C4-5 through C6-7 Report Dictated By: Fletcher Londono MD at 01/19/2019 1:45 PM Report E-Signed By: Fletcher Londono MD at 01/19/2019 1:49 PM WSN:[id number]
--- NOTE | 2019-01-19 14:02 | RADIOLOGY IMAGING REPORT ---
FACILITY: [facility] PATIENT NAME: Tere Johnson : 1940 MR: [id number] V: [id number] EXAM DATE: ORDERING PHYSICIAN: BEV ONEAL TECHNOLOGIST: Location: [facility] Patient: Tere Johnson : 1940 Visit/Account:[id number] Date of Sevice: 01/19/2019 CT CHEST ABDOMEN PELVIS W/O CON HISTORY: fall, back pain ADDITIONAL HISTORY: None. TECHNIQUE: Contiguous axial images acquired through the chest abdomen and pelvis no IV contrast admin istered.. Coronal and sagittal reformatting was also performed. One of the following dose optimizat ion techniques was utilized in the performance of this exam: Automated exposure control; adjustment o f the mA and/or kV according to the patient's size; or use of an iterative reconstruction technique. Specific details can be referenced in the facility's radiology CT exam operational policy. COMPARISON: Chest x-ray 02/12/2018 FINDINGS: CHEST: Lungs/Pleura: There is minimal left basilar discoid atelectasis versus scar. Lung parenchyma is othe rwise well-aerated and there is no evidence of pneumothorax. Mediastinum/lymph nodes: Negative. Heart/vessels: Negative. Bones/soft tissues: No fractures identified. ABDOMEN AND PELVIS: Hepatobiliary: Liver is unremarkable. There are several stones in the gallbladder measuring up to 1. 7 cm diameter. Spleen: Negative. Pancreas: Negative. Adrenals: Negative. Kidneys ureters and bladder : Negative. Genitalia: There are several calcified fibroids in the uterus, the largest measuring 4.9 x 3.8 cm sophia meter. GI: Moderate size hiatal hernia seen on previous studies as well. Vessels/spaces/nodes: Moderate vascular plaque seen in the abdominal aorta and iliac vessels. Bones/soft tissues: Remote posterior lumbar interbody fusion L4-5 and L5-S1 with accompanying harshal ectomies set. There is advanced degenerative disease L1-2 and L2-3. No acute fractures are identified . Additional findings: None pertinent. IMPRESSION: Negative for acute trauma. Cholelithiasis. Calcified uterine fibroids. Hiatal hernia. Additional benign findings per above. Report Dictated By: Fletcher Londono MD at 01/19/2019 1:49 PM Report E-Signed By: Fletcher Londono MD at 01/19/2019 1:58 PM WSN:[id number]
[2019-01-19 15:30] VITALS: BP 91/86
[2019-01-19] MEDS ORDERED: DIPHTH/TETANUS/ACEL. PERTUSSIS IM ONLY ONE (15:30)
== END 2019-01-19 16:18 | disposition home or self-care (01) ==
LOC: ER 12:25
DX: S01.81XA Laceration without foreign body of other part of head, initial encounter (principal); W06.XXXA Fall from bed, initial encounter; I49.3 Ventricular premature depolarization
CPT/HCPCS: 12014; 36416; 70450; 71250; 72125; 74176; 81001; 82375; 82550; 82803; 82948; 84443; 84484; 85025; 85610; 85730; 90471; 90715; 93005; 96361; 96374; 99284; A4353; J1885; J7030; L0172; 82040; 82247; 82310; 82374; 82435; 82565; 82947; 84075; 84132; 84155; 84295; 84450; 84460; 84520

== ENCOUNTER → 2019-01-19 | Outpatient (CLI) | payer MEDICARE, OTHER ==
[2017-12-02 08:51] VITALS: BMI 21.3
[~2019-01-19] MED LIST changes: +AMLO2.5T78 PO; +ASPI-870 PO; +LISI-362 PO
== END ==
LOC: AMB 12:01
PROVIDERS: ATTEND Nurse Practitioner
DX: S01.111A Laceration without foreign body of right eyelid and periocular area, initial encounter (principal); W19.XXXA Unspecified fall, initial encounter
CPT/HCPCS: A0425; A0429